=== PATIENT | female | born 1940 | race African-American/Black ===

== ENCOUNTER 2017-05-22 18:41 | Inpatient (IN) | payer OTHER, MEDICARE ==
[~2017-05-22] VITALS: Ht 165.1 cm; Wt 126.1 kg
[~2017-05-22 18:41] MED LIST: BRIM.2%O EACH EYE; DORZ1SOL2 EACH EYE; DULO1CAP PO; FURO1TAB93 PO; GABA300C3 PO; LATA.005%O EACH EYE; LISI40TA PO; METO100T PO; POTA-243 PO
[2017-05-22 18:44] VITALS: BP 218/92; PULSE 76; RESP 20; TEMP 99.3; O2SAT 92
[2017-05-22] MEDS ORDERED: LISI40TA PO (19:05)
[2017-05-22] MEDS ORDERED: LEVO25TA4 PO (19:05)
[2017-05-22] MEDS ORDERED: OMEP20TA93 PO (19:05)
[2017-05-22] MEDS ORDERED: POTA10CA PO (19:05)
[2017-05-22] MEDS ORDERED: HYDR25TA5 PO (19:05)
[2017-05-22] MEDS ORDERED: RANI300C PO (19:05)
[2017-05-22] MEDS ORDERED: ALLO100T PO (19:05)
[2017-05-22] MEDS ORDERED: CHOL5000 PO (19:05)
[2017-05-22] MEDS ORDERED: DONE5TAB7 PO (19:05)
[2017-05-22] MEDS ORDERED: METO100T PO (19:05)
[2017-05-22] MEDS ORDERED: FURO40TA PO (19:05)
[2017-05-22] MEDS ORDERED: ATOR80TA45 PO (19:05)
--- NOTE | 2017-05-22 19:12 | PD ---
HPI Chief Complaint: Respiratory Distress Time Seen by Provider: 18:49 Travel History International Travel<30 days: No Contact w/Intl Traveler<30days: No Traveled to known affect area: No History of Present Illness HPI 76-year-old female that presents to the ED for evaluation of shortness of breath. Per patient she's had this for about 2 days now. Per patient is worsening. Per patient nothing makes it better but ambulate and does make it worse. She has any chest pain. 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 She's been having some cough and chills. No history of COPD or CHF. Patient does have a history of hypertension as well as takes Lasix for lower leg edema. Denies any chest pain. Denies any recent travel. She has been in contact with a lot of people in charge that she is not sure if she got something from them. Allergies to sulfa and hydrocodone. No bowel movement issues. No abdominal discomfort at this time. No numbness, tingling, weakness. Per patient. Chills but no obvious fevers. Some swelling noted. Patient states also having cough and congestion. Cough is nonproductive. PFSH Past Medical History Cancer: Yes (LEFT BREAST) Cardiovascular Problems: Yes (HEART MURMUR) Diabetes: No Endocrine: No Genitourinary: No Hepatitis: No Hiatal Hernia: No Immune Disorder: No Musculoskeletal: Yes (ARTHRITIS, BACK PROBLEMS) Neurologic: No Psychiatric: Yes (CLAUSTRAPHOBIA) Reproductive: No Respiratory: Yes (OCCASIONAL BRONCHITIS) Thyroid Disease: No Past Surgical History Abdominal Surgery: No AICD: No Cardiac Surgery: No Ear Surgery: No Endocrine Surgery: No Eye Surgery: Yes (LEFT EYE CATARACT EXTR., R EYE GLAUCOMA SURGERY) Genitourinary Surgery: No Gynecologic Surgery: Yes (TUBAL LIGATION) Hysterectomy: Yes (murmur, HTN) Joint Replacement: Yes (BILATERAL KNEES) Oral Surgery: No Pacemaker: No Thoracic Surgery: No Social History Tobacco Use: No (quit in the 80s) Substance Use: No Allergies-Medications (Allergen,Severity, Reaction): Coded Allergies: Sulfa (Sulfonamide Antibiotics) (Unverified Allergy, Severe, SWELLING, ITCHING, 05/22/17) hydrocodone (Unverified Adverse Reaction, Severe, Nausea/Vomiting, ) Reported Meds & Prescriptions Reported Meds & Active Scripts Active Reported Potassium Chloride ER (Potassium Chloride) 10 Meq Cap 10 Meq PO BID Levothyroxine (Levothyroxine Sodium) 25 Mcg Tab 25 Mcg PO DAILY Allopurinol 100 Mg Tab 200 Mg PO DAILY Donepezil 5 Mg Tab 5 Mg PO HS Hydrochlorothiazide 25 Mg Tab 25 Mg PO DAILY Lisinopril 40 Mg Tab 40 Mg PO DAILY Furosemide 40 Mg Tab 40 Mg PO BID Metoprolol Tartrate 100 Mg Tab 100 Mg PO DAILY Atorvastatin (Atorvastatin Calcium) 80 Mg Tab 80 Mg PO HS Ranitidine (Ranitidine HCl) 300 Mg Cap 300 Mg PO HS Omeprazole 20 Mg Tab 20 Mg PO DAILY Vitamin D3 (Cholecalciferol) 5,000 Unit Cap 5,000 Units PO DAILY Review of Systems Except as stated in HPI: all other systems reviewed are Neg Physical Exam Narrative GENERAL: SKIN: Warm and dry. HEAD: Atraumatic. Normocephalic. EYES: Pupils equal and round. No scleral icterus. No injection or drainage. ENT: No nasal bleeding or discharge. Mucous membranes pink and moist. Tongue is midline. No uvula deviation. TMs are clear with an of infection or perforation. Sinuses are nontender. Nostril are patent bilaterally with clear mucus noted. No obvious lymphadenopathy. NECK: Trachea midline. No JVD. CARDIOVASCULAR: Regular rate and rhythm. RESPIRATORY: No accessory muscle use. Mild rales heard with expiration.. Breath sounds equal bilaterally. GASTROINTESTINAL: Abdomen soft, non-tender, nondistended. Hepatic and splenic margins not palpable. MUSCULOSKELETAL: Extremities without clubbing, cyanosis, or edema. No obvious deformities. Full range of motion of the upper and lower extremities bilaterally. 2+ pulses bilaterally. NEUROLOGICAL: Awake and alert. No obvious cranial nerve deficits. Motor grossly within normal limits. Five out of 5 muscle strength in the arms and legs. Normal speech. PSYCHIATRIC: Appropriate mood and affect; insight and judgment normal. Data Data Last Documented VS Vital Signs Date Time Temp Pulse Resp B/P (MAP) Pulse Ox O2 Delivery O2 Flow Rate FiO2 05/22/17 20:22 98.0 66 20 180/85 (116) 100 Nasal Cannula 05/22/17 20:07 2.00 Orders Orders Electrocardiogram (05/22/17 18:59) Complete Blood Count With Diff (05/22/17 18:59) Comprehensive Metabolic Panel (05/22/17 18:59) Ckmb (Isoenzyme) Profile (05/22/17 18:59) Troponin I (05/22/17 18:59) B-Type Natriuretic Peptide (05/22/17 18:59) Prothrombin Time / Inr (Pt) (05/22/17 18:59) Act Partial Throm Time (Ptt) (05/22/17 18:59) Lipase (05/22/17 18:59) Magnesium (Mg) (05/22/17 18:59) Potassium, Serum (K) (05/22/17 18:59) Influenzae A/B Antigen (05/22/17 18:59) Chest, Single Ap (05/22/17 18:59) Iv Access Insert/Monitor (05/22/17 18:59) Ecg Monitoring (05/22/17 18:59) Oximetry (05/22/17 18:59) Albuterol-Ipratropium Neb (Duoneb Neb) (05/22/17 19:45) Ondansetron Inj (Zofran Inj) (05/22/17 20:15) CKMB (05/22/17 19:55) CKMB% (05/22/17 19:55) Admit Order (Ed Use Only) (05/22/17 21:08) Labs Laboratory Tests Test 05/22/17 19:55 White Blood Count 5.1 TH/MM3 Red Blood Count 3.70 MIL/MM3 Hemoglobin 11.3 GM/DL Hematocrit 34.0 % Mean Corpuscular Volume 92.0 FL Mean Corpuscular Hemoglobin 30.5 PG Mean Corpuscular Hemoglobin Concent 33.2 % Red Cell Distribution Width 15.5 % Platelet Count 181 TH/MM3 Mean Platelet Volume 8.2 FL Neutrophils (%) (Auto) 79.0 % Lymphocytes (%) (Auto) 4.8 % Monocytes (%) (Auto) 15.4 % Eosinophils (%) (Auto) 0.3 % Basophils (%) (Auto) 0.5 % Neutrophils # (Auto) 4.0 TH/MM3 Lymphocytes # (Auto) 0.2 TH/MM3 Monocytes # (Auto) 0.8 TH/MM3 Eosinophils # (Auto) 0.0 TH/MM3 Basophils # (Auto) 0.0 TH/MM3 CBC Comment DIFF FINAL Differential Comment Prothrombin Time 11.2 SEC Prothromb Time International Ratio 1.1 RATIO Activated Partial Thromboplast Time 25.7 SEC Blood Urea Nitrogen 28 MG/DL Creatinine 1.36 MG/DL Random Glucose 108 MG/DL Total Protein 7.7 GM/DL Albumin 3.4 GM/DL Calcium Level 8.6 MG/DL Magnesium Level 2.0 MG/DL Alkaline Phosphatase 83 U/L Aspartate Amino Transf (AST/SGOT) 24 U/L Alanine Aminotransferase (ALT/SGPT) 18 U/L Total Bilirubin 0.3 MG/DL Sodium Level 140 MEQ/L Potassium Level 4.6 MEQ/L Chloride Level 105 MEQ/L Carbon Dioxide Level 27.1 MEQ/L Anion Gap 8 MEQ/L Estimat Glomerular Filtration Rate 46 ML/MIN Total Creatine Kinase 230 U/L Creatine Kinase MB 5.3 NG/ML Creatine Kinase MB % 2.3 % Troponin I 0.10 NG/ML B-Type Natriuretic Peptide 1226 PG/ML Lipase 215 U/L MDM Medical Decision Making Medical Screen Exam Complete: Yes Emergency Medical Condition: Yes Medical Record Reviewed: Yes Interpretation(s) CBC & BMP Diagram 05/22/17 19:55 Total Protein 7.7, Albumin 3.4, Calcium Level 8.6, Magnesium Level 2.0, Alkaline Phosphatase 83, Aspartate Amino Transf (AST/SGOT) 24, Alanine Aminotransferase (ALT/SGPT) 18, Total Bilirubin 0.3 troponin 0.10 BNP in the 1200s Last Impressions Chest X-Ray 05/22/17 1859 Signed Impressions: Service Date/Time: Monday, May 22, 2017 19:18 - CONCLUSION: 1. Probable dependent atelectasis. No effusion or pneumothorax. Roberto Alcala MD influenza positive Differential Diagnosis Pneumonia versus bronchitis versus COPD versus CHF versus ACS less likely versus influenza Narrative Course 76-year-old female that presents to the ED for evaluation of shortness of breath. Patient was properly examined and was found to have signs and symptoms of unclear etiology at this time. Labs and imaging ordered. Labs and imaging showed elevated BNP, positive flow as well as positive troponin. Because of patient's symptoms I do recommend admission. Patient somewhat hypoxic without oxygen. She feels better with oxygen the breathing treatment. Her lungs sound better. She is never had CHF in the past and she's never heard this before. This time I do recommend admission for further evaluation. Patient is in agreement with this. Case discussed with Dr. Lopez who agrees to admission to her service. Diagnosis Primary Impression: CHF (congestive heart failure) Qualified Codes: I50.9 - Heart failure, unspecified Additional Impressions: Influenza Elevated troponin Admitting Information Admitting Physician Requests: Observation Camacho Marie May 22, 2017 19:12
--- NOTE | 2017-05-22 19:36 | RADRPT ---
EXAM DATE/TIME: 05/22/2017 19:18 [facility] COMPARISON: No previous studies available for comparison. INDICATIONS : Short of breath. MEDICAL HISTORY : None. SURGICAL HISTORY : None. ENCOUNTER: Initial ACUITY: 1 day PAIN SCORE: 0/10 LOCATION: Bilateral chest FINDINGS: A single view of the chest demonstrates the lungs to be symmetrically aerated without evidence of mas s, infiltrate or effusion. Basilar density probably represents some dependent atelectasis and crowdin g of the bronchovascular structures The cardiomediastinal contours are unremarkable. Osseous struct ures are intact. CONCLUSION: 1. Probable dependent atelectasis. No effusion or pneumothorax. Roberto Alcala MD on May 22, 2017 at 19:33 Board Certified Radiologist. This report was verified electronically.
[2017-05-22] MEDS ORDERED: RESP: ALBUTEROL 2.5 MG/IPRATROPIUM 0.5 MG NEB (SCH) INH ONE (19:45)
[2017-05-22 20:07] VITALS: O2SAT 99
[2017-05-22] MEDS ORDERED: ONDANSETRON HCL 4 MG/2 ML VIAL IV PUSH ONE (20:15)
[2017-05-22 20:22] VITALS: BP 180/85; PULSE 66; RESP 20; TEMP 98; O2SAT 100
[2017-05-22 20:27] LABS: BASOPHIL % 0.5 % (0.0-2.0); EOSINOPHIL % 0.3 % (0.0-4.0); HEMO FLAGS DIFF FINAL; LYMPH % 4.8 % (9.0-44.0); LYMPHOCYTE # 0.2 TH/MM3 (1.0-4.8); MEAN CORPUSCULAR HEMOGLOBIN 30.5 PG (27.0-34.0); MEAN CORPUSCULAR HGB CONC 33.2 % (32.0-36.0); MONO % 15.4 % (0.0-8.0); PLATELET COUNT 181 TH/MM3 (150-450); RED CELL DISTRIBUTION WIDTH 15.5 % (11.6-17.2); WHITE BLOOD COUNT 5.1 TH/MM3 (4.0-11.0)
[2017-05-22 20:42] LABS: APTT (PATIENT) 25.7 SEC (24.3-30.1); INTERNATIONAL NORMALIZED RATIO 1.1 RATIO; PROTHROMBIN TIME - PATIENT 11.2 SEC (9.8-11.6)
[2017-05-22 20:48] LABS: ANION GAP 8 MEQ/L (5-15); AST (GOT) 24 U/L (15-37); BICARBONATE 27.1 MEQ/L (21.0-32.0); BLOOD UREA NITROGEN 28 MG/DL (7-18); CHLORIDE 105 MEQ/L (98-107); GLOMERULAR FILTRATION RATE 46 ML/MIN (>89); POTASSIUM 4.6 MEQ/L (3.5-5.1); SODIUM (NA) 140 MEQ/L (136-145)
[2017-05-22 20:50] LABS: ALT (GPT) 18 U/L (10-53)
[2017-05-22 20:53] LABS: ALKALINE PHOSPHATASE 83 U/L (45-117); CREATINE KINASE 230 U/L (26-192); TOTAL BILIRUBIN ADULT 0.3 MG/DL (0.2-1.0)
[2017-05-22 21:06] LABS: CKMB 5.3 NG/ML (0.5-3.6)
[2017-05-22] MEDS ORDERED: SODIUM CHLORIDE 0.9% FLUSH 10 ML FLUSH IV FLUSH PRN (21:30)
--- NOTE | 2017-05-22 21:47 | HHI.HP ---
[facility] Unknown Admission Diagnosis acute CHF exacerbation, influenza Diagnoses: Travel History International Travel<30 Days: No Contact w/Intl Traveler <30 Da: No Traveled to Known Affected Are: No History of Present Illness 76-year-old female with a past medical history significant for hypertension, hyperlipidemia, hypothyroidism and history of breast cancer now in remission presents to the emergency department with a 2 day history of cough productive of clear sputum with increasing shortness of breath. Reports that she began wheezing yesterday. She states she's had nausea and vomiting and also began yesterday. She has no history of coronary artery disease or CHF. She does have a history of bilateral lower extremity edema that has been worsening over the past year. She is influenza A positive. Chest x-ray without consolidation although does appear minimally wet. BNP 1226. Review of Systems Denies fever or chills Denies blurry vision, otorrhea, rhinorrhea Denies sore throat and cough No chest pain, palpitations, Positive shortness of breath No abdominal pain Denies constipation/diarrhea. Positive nausea/vomiting Denies muscle pain/weakness No rashes Past Family Social History Past Medical History Hypertension Hyperlipidemia Hypothyroidism Left-sided breast cancer Past Surgical History Left mastectomy Bilateral knee replacement Left heel spur Bilateral tubal ligation Reported Medications Reported Meds & Active Scripts Active Reported Potassium Chloride ER (Potassium Chloride) 10 Meq Cap 10 Meq PO BID Levothyroxine (Levothyroxine Sodium) 25 Mcg Tab 25 Mcg PO DAILY Allopurinol 100 Mg Tab 200 Mg PO DAILY Donepezil 5 Mg Tab 5 Mg PO HS Hydrochlorothiazide 25 Mg Tab 25 Mg PO DAILY Lisinopril 40 Mg Tab 40 Mg PO DAILY Furosemide 40 Mg Tab 40 Mg PO BID Metoprolol Tartrate 100 Mg Tab 100 Mg PO DAILY Atorvastatin (Atorvastatin Calcium) 80 Mg Tab 80 Mg PO HS Ranitidine (Ranitidine HCl) 300 Mg Cap 300 Mg PO HS Omeprazole 20 Mg Tab 20 Mg PO DAILY Vitamin D3 (Cholecalciferol) 5,000 Unit Cap 5,000 Units PO DAILY Allergies: Coded Allergies: Sulfa (Sulfonamide Antibiotics) (Unverified Allergy, Severe, SWELLING, ITCHING, 05/22/17) hydrocodone (Unverified Adverse Reaction, Severe, Nausea/Vomiting, ) Family History Mother with diabetes mellitus. Father with CAD. Social History Quit smoking in 1979. Extremely rare alcohol use. Denies illicit drugs. Physical Exam Vital Signs Vital Signs Date Time Temp Pulse Resp B/P (MAP) Pulse Ox O2 Delivery O2 Flow Rate FiO2 05/22/17 20:22 98.0 66 20 180/85 (116) 100 Nasal Cannula 05/22/17 20:07 99 Nasal Cannula 2.00 05/22/17 18:44 99.3 76 20 218/92 (134) 92 Physical Exam GENERAL: female sitting up in bed SKIN: No rashes, ecchymoses or lesions. Cool and dry. HEAD: Atraumatic. Normocephalic. No temporal or scalp tenderness. EYES: Pupils equal round and reactive. Extraocular motions intact. No scleral icterus. No injection or drainage. ENT: Nose without bleeding, purulent drainage or septal hematoma. Throat without erythema, tonsillar hypertrophy or exudate. Uvula midline. Airway patent. NECK: Trachea midline. No JVD or lymphadenopathy. Supple, nontender, no meningeal signs. CARDIOVASCULAR: Regular rate and rhythm without murmurs, gallops, or rubs. RESPIRATORY: Bilateral wheezes left greater than right. GASTROINTESTINAL: Abdomen soft, non-tender, nondistended. No hepato-splenomegaly , or palpable masses. No guarding. MUSCULOSKELETAL: 2+ pitting edema to the knees bilaterally. No calf tenderness. NEUROLOGICAL: Awake and alert. Cranial nerves II through XII intact. Motor and sensory grossly within normal limits. Normal speech. Laboratory Laboratory Tests Test 05/22/17 19:55 White Blood Count 5.1 Red Blood Count 3.70 Hemoglobin 11.3 Hematocrit 34.0 Mean Corpuscular Volume 92.0 Mean Corpuscular Hemoglobin 30.5 Mean Corpuscular Hemoglobin Concent 33.2 Red Cell Distribution Width 15.5 Platelet Count 181 Mean Platelet Volume 8.2 Neutrophils (%) (Auto) 79.0 Lymphocytes (%) (Auto) 4.8 Monocytes (%) (Auto) 15.4 Eosinophils (%) (Auto) 0.3 Basophils (%) (Auto) 0.5 Neutrophils # (Auto) 4.0 Lymphocytes # (Auto) 0.2 Monocytes # (Auto) 0.8 Eosinophils # (Auto) 0.0 Basophils # (Auto) 0.0 CBC Comment DIFF FINAL Differential Comment Prothrombin Time 11.2 Prothromb Time International Ratio 1.1 Activated Partial Thromboplast Time 25.7 Blood Urea Nitrogen 28 Creatinine 1.36 Random Glucose 108 Total Protein 7.7 Albumin 3.4 Calcium Level 8.6 Magnesium Level 2.0 Alkaline Phosphatase 83 Aspartate Amino Transf (AST/SGOT) 24 Alanine Aminotransferase (ALT/SGPT) 18 Total Bilirubin 0.3 Sodium Level 140 Potassium Level 4.6 Chloride Level 105 Carbon Dioxide Level 27.1 Anion Gap 8 Estimat Glomerular Filtration Rate 46 Total Creatine Kinase 230 Creatine Kinase MB 5.3 Creatine Kinase MB % 2.3 Troponin I 0.10 B-Type Natriuretic Peptide 1226 Lipase 215 Date/Time Source Procedure Growth Status 05/22/17 19:20 Nasal Washing Influenza Types A,B Antigen ([facility]) - Final Positive For Flu A Antigen Complete Result Diagram: 05/22/17195405/22/171954 Caprini VTE Risk Assessment Caprini VTE Risk Assessment: Mod/High Risk (score >= 2) Caprini Risk Assessment Model Point Value = 1 Point Value = 2 Point Value = 3 Point Value = 5 Age 41-60 Minor surgery BMI > 25 kg/m2 Swollen legs Varicose veins or History of unexplained or recurrent spontaneous Oral contraceptives or hormone replacement Sepsis (< 1 month) Serious lung disease, including pneumonia (< 1 month) Abnormal pulmonary function Acute myocardial infarction Congestive heart failure (< 1 month) History of inflammatory bowel disease Medical patient at bed rest Age 61-74 Arthroscopic surgery Major open surgery (> 45 min) Laparoscopic surgery (> 45 min) Malignancy Confined to bed (> 72 hours) Immobilizing plaster cast Central venous access Age >= 75 History of VTE Family history of VTE Factor V Leiden Prothrombin [id number] Lupus anticoagulant Anticardiolipin antibodies Elevated serum homocysteine Heparin-induced thrombocytopenia Other congenital or acquired thrombophilia Stroke (< 1 month) Elective arthroplasty Hip, pelvis, or leg fracture Acute spinal cord injury (< 1 month) Prophylaxis Regimen Total Risk Factor Score Risk Level Prophylaxis Regimen 0-1 Low Early ambulation 2 Moderate Order ONE of the following: *Sequential Compression Device (SCD) *Heparin 5000 units SQ BID 3-4 Higher Order ONE of the following medications: *Heparin 5000 units SQ TID *Enoxaparin/Lovenox 40 mg SQ daily (WT < 150 kg, CrCl > 30 mL/min) *Enoxaparin/Lovenox 30 mg SQ daily (WT < 150 kg, CrCl > 10-29 mL/min) *Enoxaparin/Lovenox 30 mg SQ BID (WT < 150 kg, CrCl > 30 mL/min) AND/OR *Sequential Compression Device (SCD) 5 or more Highest Order ONE of the following medications: *Heparin 5000 units SQ TID (Preferred with Epidurals) *Enoxaparin/Lovenox 40 mg SQ daily (WT < 150 kg, CrCl > 30 mL/min) *Enoxaparin/Lovenox 30 mg SQ daily (WT < 150 kg, CrCl > 10-29 mL/min) *Enoxaparin/Lovenox 30 mg SQ BID (WT < 150 kg, CrCl > 30 mL/min) AND *Sequential Compression Device (SCD) Assessment and Plan Assessment and Plan Assessment/plan: 1. New onset CHF/shortness of breath Chest x-ray mild pulmonary edema, images reviewed by ms BNP 1226 IV Lasix Supplemental oxygen when necessary Echo pending Troponin elevated to 0.10, ACS rule out pending with serial troponins/EKGs Cardiology consulted, appreciate recommendations 2. Influenza Supportive care Tamiflu as patient has been symptomatic for less than 2 days 3. CKD Creatinine 1.36, baseline Monitor renal function 4. Hypertension/hyperlipidemia/hypothyroidism Continue home medications FEN Heart healthy diet Monitor electrolytes Heparin Case discussed with ER physician at length Bev Lopez MD May 22, 2017 21:47
[2017-05-22] MEDS: ATORVASTATIN 80 MG TAB PO SCH (22:07)
[2017-05-22] MEDS: FAMOTIDINE 20 MG TAB PO SCH (22:07)
[2017-05-22] MEDS: DONEPEZIL HCL 5 MG TAB PO SCH (22:07)
[2017-05-22] MEDS: HEPARIN SODIUM - SQ 10,000 UNITS/ML VIAL SQ SCH (22:08)
[2017-05-22 22:10] VITALS: BP 181/77; PULSE 69; RESP 20; O2SAT 98
[2017-05-22] MEDS ORDERED: hydrALAZINE HCL 20 MG/ML VIAL IV PUSH ONE (22:15)
[2017-05-22 22:42] VITALS: BP 166/72; PULSE 75; RESP 20; O2SAT 100
[2017-05-22 23:54] VITALS: BP 151/67; PULSE 95; RESP 20; TEMP 99.7; O2SAT 97
[2017-05-23] VITALS (11 sets, daily range): BP systolic 123–165; BP diastolic 56–76; PULSE 59–94; RESP 18–20; TEMP 98.3–99.5; O2SAT 92–98
[2017-05-23] MEDS ORDERED: FUROSEMIDE 40 MG/4 ML VIAL IV PUSH ONE (00:30)
[2017-05-23] MEDS: RESP: ALBUTEROL 2.5 MG/IPRATROPIUM 0.5 MG NEB (PRN) NEB (00:40)
[2017-05-23 02:36] LABS: AUTOMATED NEUTROPHIL # 6.9 TH/MM3 (1.8-7.7); BASOPHIL % 0.2 % (0.0-2.0); EOSINOPHIL % 0.1 % (0.0-4.0); HEMATOCRIT 36.3 % (35.0-46.0); HEMO FLAGS DIFF FINAL; LYMPH % 3.8 % (9.0-44.0); LYMPHOCYTE # 0.3 TH/MM3 (1.0-4.8); MEAN CELL VOLUME 93.6 FL (80.0-100.0); MEAN CORPUSCULAR HEMOGLOBIN 29.9 PG (27.0-34.0); NEUT % 86.9 % (16.0-70.0); PLATELET COUNT 173 TH/MM3 (150-450); RED BLOOD COUNT 3.88 MIL/MM3 (4.00-5.30); RED CELL DISTRIBUTION WIDTH 15.2 % (11.6-17.2)
[2017-05-23 02:59] LABS: BICARBONATE 26.5 MEQ/L (21.0-32.0); POTASSIUM 4.3 MEQ/L (3.5-5.1)
[2017-05-23] MEDS: RESP: ALBUTEROL 2.5 MG/IPRATROPIUM 0.5 MG NEB (SCH) NEB ×4 (03:04→22:12)
[2017-05-23 03:15] LABS: CKMB 5.4 NG/ML (0.5-3.6)
[2017-05-23] MEDS: LEVOTHYROXINE SODIUM 25 MCG TAB PO SCH (05:34)
[2017-05-23] MEDS: HEPARIN SODIUM - SQ 10,000 UNITS/ML VIAL SQ SCH ×2 (05:35→14:42)
--- NOTE | 2017-05-23 08:23 | PD.CONS ---
HPI Consult Requested By Primary Care Physician Unknown History of Present Illness 76-year-old female with a past medical history significant for hypertension, hyperlipidemia, hypothyroidism, heart murmur, lower extremities swelling and breast cancer s/p radiation, chemo and masectomy on remission presents to the emergency department with a 2 day history of cough productive of clear sputum with increasing shortness of breath. Reports that she began wheezing yesterday also nausea and vomiting. She has no history of coronary artery disease. BNP 1226. Cardiology consulted for HF evaluation. She denies chest pain, palpitations or syncope. Review of Systems Consitutional: DENIES: Fatigue, Fever, Chills, Weight gain, Weight loss Eyes: DENIES: Amaurosis Fugax, Change in vision HEENT: DENIES: Lightheadedness, Change in hearing Respiratory: COMPLAINS OF: Cough, Shortness of breath, DENIES: See HPI, Snoring , Wheezing, Sputum production Cardiovascular: DENIES: See HPI, Chest pain, Palpitations, Syncope, Tachycardia Gastrointestinal: COMPLAINS OF: Nausea, DENIES: Vomiting, Change in bowel habits, Reflux, Bloody stools, Melena Integumentary: DENIES: Rash Neurologic: DENIES: Tingling or numbness, Memory problems, Poor Balance, Stroke symptoms Musculoskeletal: DENIES: Joint pain, Muscle pain, Limited range of motion, Back pain Psychiatric: DENIES: Anxiety, Depression, Sleep disturbances Hematologic: DENIES: Bruising tendencies, Bleeding tendencies Endocrine: DENIES: Weight gain, Weight loss, Thyroid disease Past Family Social History Allergies: Coded Allergies: Sulfa (Sulfonamide Antibiotics) (Unverified Allergy, Severe, SWELLING, ITCHING, 05/22/17) hydrocodone (Unverified Adverse Reaction, Severe, Nausea/Vomiting, ) Past Medical History Hypertension Hyperlipidemia Hypothyroidism Left-sided breast cancer Past Surgical History Left mastectomy Bilateral knee replacement Left heel spur Bilateral tubal ligation Reported Medications Reported Meds & Active Scripts Active Reported Potassium Chloride ER (Potassium Chloride) 10 Meq Cap 10 Meq PO BID Levothyroxine (Levothyroxine Sodium) 25 Mcg Tab 25 Mcg PO DAILY Allopurinol 100 Mg Tab 200 Mg PO DAILY Donepezil 5 Mg Tab 5 Mg PO HS Hydrochlorothiazide 25 Mg Tab 25 Mg PO DAILY Lisinopril 40 Mg Tab 40 Mg PO DAILY Furosemide 40 Mg Tab 40 Mg PO BID Metoprolol Tartrate 100 Mg Tab 100 Mg PO DAILY Atorvastatin (Atorvastatin Calcium) 80 Mg Tab 80 Mg PO HS Ranitidine (Ranitidine HCl) 300 Mg Cap 300 Mg PO HS Omeprazole 20 Mg Tab 20 Mg PO DAILY Vitamin D3 (Cholecalciferol) 5,000 Unit Cap 5,000 Units PO DAILY Active Ordered Medications Current Medications Medications (Trade) Dose Ordered Sig/Elana Route Start Time Stop Time Status Last Admin (NS Flush) 2 ml BID IV FLUSH 05/23/17 09:00 (NS Flush) 2 ml UNSCH PRN IV FLUSH 05/22/17 21:30 05/23/17 00:41 (Lasix Inj) 40 mg BID@,18 IVP 05/23/17 09:00 (KCl) 10 meq BID PO 05/23/17 09:00 (Aspirin Chew) 81 mg DAILY CHEW 05/23/17 09:00 (Heparin Inj) 5,000 units Q8H SQ 05/22/17 22:00 05/23/17 05:35 (Lipitor) 80 mg HS PO 05/22/17 21:45 05/22/17 22:07 (Aricept) 5 mg HS PO 05/22/17 21:45 05/22/17 22:07 (Synthroid) 25 mcg DAILY@0600 PO 05/23/17 06:00 05/23/17 05:34 (Lopressor) 100 mg DAILY PO 05/23/17 09:00 (Prinivil) 40 mg DAILY PO 05/23/17 09:00 (Protonix) 20 mg DAILY PO 05/23/17 09:00 (Pepcid) 20 mg HS PO 05/22/17 21:45 05/22/17 22:07 (Tamiflu) 75 mg DAILY PO 05/23/17 09:00 (Duoneb Neb) 1 ampule Q4HR NEB PRN NEB 05/23/17 00:30 05/23/17 00:40 (Duoneb Neb) 1 ampule Q6HR NEB NEB 05/23/17 04:00 05/23/17 03:04 (Pneumovax-23 Inj) 25 mcg ONCE ONCE IM 05/24/17 10:00 05/24/17 10:01 (Flu (Quadrivalent) Vaccine Inj) 0.5 ml ONCE ONCE IM 05/24/17 10:00 05/24/17 10:01 Family History Mother with diabetes mellitus. Father with CAD. Social History Quit smoking in 1979. Extremely rare alcohol use. Denies illicit drugs. Physical Exam Vital Signs Vital Signs Date Time Temp Pulse Resp B/P (MAP) Pulse Ox O2 Delivery O2 Flow Rate FiO2 05/23/17 07:48 99.5 87 20 123/56 (78) 97 05/23/17 03:04 94 Nasal Cannula 2.00 05/23/17 02:43 98.5 76 18 151/67 (95) 95 05/23/17 00:30 76 05/22/17 23:36 05/22/17 22:42 75 20 166/72 (103) 100 Nasal Cannula 2.00 05/22/17 22:10 69 20 181/77 (111) 98 Nasal Cannula 2.00 05/22/17 20:22 98.0 66 20 180/85 (116) 100 Nasal Cannula 05/22/17 20:07 99 Nasal Cannula 2.00 05/22/17 18:44 99.3 76 20 218/92 (134) 92 Physical Exam GENERAL: Well-nourished, well-developed patient. SKIN: Warm and dry. HEAD: Normocephalic. EYES: No scleral icterus. No injection or drainage. NECK: Supple, trachea midline. No JVD or lymphadenopathy. CARDIOVASCULAR: Regular rate and rhythm 2/6 JOHANNA, gallops, or rubs. RESPIRATORY: Breath sounds equal bilaterally. No accessory muscle use. GASTROINTESTINAL: Abdomen soft, non-tender, nondistended. EXTREMITIES: No cyanosis, or +edema. NEUROLOGICAL: Awake, alert, and oriented x 3. Non-focal. Laboratory Laboratory Tests Test 05/22/17 19:55 05/23/17 02:22 White Blood Count 5.1 8.0 Red Blood Count 3.70 3.88 Hemoglobin 11.3 11.6 Hematocrit 34.0 36.3 Mean Corpuscular Volume 92.0 93.6 Mean Corpuscular Hemoglobin 30.5 29.9 Mean Corpuscular Hemoglobin Concent 33.2 32.0 Red Cell Distribution Width 15.5 15.2 Platelet Count 181 173 Mean Platelet Volume 8.2 7.9 Neutrophils (%) (Auto) 79.0 86.9 Lymphocytes (%) (Auto) 4.8 3.8 Monocytes (%) (Auto) 15.4 9.0 Eosinophils (%) (Auto) 0.3 0.1 Basophils (%) (Auto) 0.5 0.2 Neutrophils # (Auto) 4.0 6.9 Lymphocytes # (Auto) 0.2 0.3 Monocytes # (Auto) 0.8 0.7 Eosinophils # (Auto) 0.0 0.0 Basophils # (Auto) 0.0 0.0 CBC Comment DIFF FINAL DIFF FINAL Differential Comment Prothrombin Time 11.2 Prothromb Time International Ratio 1.1 Activated Partial Thromboplast Time 25.7 Blood Urea Nitrogen 28 25 Creatinine 1.36 1.31 Random Glucose 108 104 Total Protein 7.7 Albumin 3.4 Calcium Level 8.6 9.0 Magnesium Level 2.0 Alkaline Phosphatase 83 Aspartate Amino Transf (AST/SGOT) 24 Alanine Aminotransferase (ALT/SGPT) 18 Total Bilirubin 0.3 Sodium Level 140 141 Potassium Level 4.6 4.3 Chloride Level 105 107 Carbon Dioxide Level 27.1 26.5 Anion Gap 8 8 Estimat Glomerular Filtration Rate 46 48 Total Creatine Kinase 230 272 Creatine Kinase MB 5.3 5.4 Creatine Kinase MB % 2.3 2.0 Troponin I 0.10 0.16 B-Type Natriuretic Peptide 1226 Lipase 215 Date/Time Source Procedure Growth Status 05/22/17 19:20 Nasal Washing Influenza Types A,B Antigen ([facility]) - Final Positive For Flu A Antigen Complete Result Diagram: 05/23/1722105/23/17221 Imaging Last Impressions Chest X-Ray 05/22/17 1859 Signed Impressions: Service Date/Time: Monday, May 22, 2017 19:18 - CONCLUSION: 1. Probable dependent atelectasis. No effusion or pneumothorax. Roberto Alcala MD Assessment and Plan Problem List: (1) CHF (congestive heart failure) ICD Codes: I50.9 - Heart failure, unspecified Status: Acute Plan: 76 y/o F admitted with SOB concerning for new onset HF. Murmur on exam suggestive of severe . Currently she reports feeling well no CV complaints. Recommendations: 1. 2Decho TODAY. If severe will schedule cath for pre-op 2. Strict I&O 3. Daily weights 4. Low salt diet 5. IV diuresis 6. Check TSH 7. Cont BB, ACEi, Statin and ASA Further management to be determine (2) Influenza ICD Codes: J11.1 - Influenza due to unidentified influenza virus with other respiratory manifestations Status: Acute (3) Elevated troponin ICD Codes: R74.8 - Abnormal levels of other serum enzymes Status: Acute Problem Qualifiers (1) CHF (congestive heart failure): Qualified Codes: I50.9 - Heart failure, unspecified Luis Ansari MD May 23, 2017 08:23
[2017-05-23] MEDS ORDERED: ASPIRIN 81 MG CHEW TAB CHEW SCH (09:00)
[2017-05-23] MEDS: OSELTAMIVIR PHOSPHATE 75 MG CAP PO SCH (10:34)
[2017-05-23] MEDS: PANTOPRAZOLE SOD 20 MG DELAYED RELEASE TAB PO SCH (10:35)
[2017-05-23] MEDS: POTASSIUM CHLORIDE 10 MEQ CONTROLLED RELEASE TAB PO SCH ×2 (10:35→21:20)
[2017-05-23] MEDS: LISINOPRIL 20 MG TAB PO SCH (10:35)
[2017-05-23] MEDS: METOPROLOL TARTRATE 100 MG TAB PO SCH (10:35)
[2017-05-23] MEDS: SODIUM CHLORIDE 0.9% FLUSH 10 ML FLUSH IV FLUSH SCH ×2 (10:36→21:20)
[2017-05-23] MEDS: FUROSEMIDE 40 MG/4 ML VIAL IVP SCH ×2 (10:36→18:00)
[2017-05-23 10:56] LABS: CKMB 3.1 NG/ML (0.5-3.6)
--- NOTE | 2017-05-23 13:11 | ECHRPT ---
Indication: SHORTNESS OF BREATH CONCLUSIONS Mildly dilated left ventricle. Wall thickness is normal. The left ventricular systolic function is normal with an estimated ejection fraction in the range of 55-60%. The left atrial size is mildly dilated. Mitral annular calcification is present. Trace mitral valve regurgitation. [id number] aortic valve regurgitation. Severe aortic valve stenosis. Aortic valve area is 0.58 cm. Aortic valve mean gradient is 67 mmHg. There is trace tricuspid valve regurgitation. BP: / HR: Rhythm: MEASUREMENTS (Male / Female) Normal Values Technical Quality: 2D ECHO LV Diastolic Diameter PLAX 5.0 cm 4.2 - 5.9 / 3.9 - 5.3 cm LV Systolic Diameter PLAX 3.7 cm IVS Diastolic Thickness 1.0 cm 0.6 - 1.0 / 0.6 - 0.9 cm LVPW Diastolic Thickness 0.8 cm 0.6 - 1.0 / 0.6 - 0.9 cm LV Relative Wall Thickness 0.4 RV Internal Dim ED PLAX 2.2 cm LVOT Diameter 1.9 cm LA Systolic Diameter LX 3.8 cm 3.0 - 4.0 / 2.7 - 3.8 cm DOPPLER AV Peak Velocity 583.0 cm/s AV Peak Gradient 136.0 mmHg AV Mean Gradient 84.0 mmHg AV Velocity Time Integral 145.0 cm AI Peak Velocity 397.5 cm/s AI Peak Gradient 63.2 mmHg AI Pressure Half Time 408.0 ms LVOT Peak Velocity 118.0 cm/s LVOT Peak Gradient 5.6 mmHg LVOT Velocity Time Integral 29.4 cm AV Area Cont Eq vti 0.6 cm AV Area Cont Eq pk 0.6 cm Mitral E Point Velocity 76.0 cm/s Mitral A Point Velocity 86.9 cm/s Mitral E to A Ratio 0.9 TR Peak Velocity 374.0 cm/s TR Peak Gradient 56.0 mmHg Right Atrial Pressure 5.0 mmHg Pulmonary Artery Systolic Pressu 61.0 mmHg Right Ventricular Systolic Press 61.0 mmHg FINDINGS LEFT VENTRICLE Mildly dilated left ventricle. Wall thickness is normal. The left ventricular systolic function is normal with an estimated ejection fraction in the range of 55-60%. RIGHT VENTRICLE Normal right ventricular size and systolic function. LEFT ATRIUM The left atrial size is mildly dilated. RIGHT ATRIUM The right atrial size is normal. ATRIAL SEPTUM Normal atrial septal thickness without atrial level shunting by limited color doppler interrogation. AORTA The aortic root and proximal ascending aorta are normal in size on limited imaging. MITRAL VALVE Mitral annular calcification is present. Trace mitral valve regurgitation. AORTIC VALVE [id number] aortic valve regurgitation. Severe aortic valve stenosis. Aortic valve area is 0.58 cm. Aortic valve mean gradient is 84 mmHg. TRICUSPID VALVE There is trace tricuspid valve regurgitation. PULMONARY VALVE No pulmonary valve regurgitation or stenosis. VESSELS The inferior vena cava is normal in size. PERICARDIUM No pericardial effusion. Luis Ansari MD (Electronically Signed) Final Date:23 May 2017 13:10
--- NOTE | 2017-05-23 13:40 | EKG ---
Date Performed: 05/22/2017 Time Performed: 19:16:16 PTAGE: 76 years EKG: Sinus rhythm WITH OCCASIONAL VENTRICULAR PREMATURE COMPLEXES POSSIBLE LEFT VENTRICULAR HYPERTROPHY POSSIBLE SEPTA L MYOCARDIAL INFARCTION ABNORMAL ECG NO PREVIOUS TRACING DOCTOR: Felipa Arevalo Interpretating Date/Time 05/23/2017 13:40:14
--- NOTE | 2017-05-23 14:59 | HHI.PR ---
Subjective Remarks patient laying in bed she is about to leave the room going for catheter lab for heart catheterization by Dr. Alcala She denied active chest pain at this point or short of breath, she is afebrile Objective Vitals Vital Signs Date Time Temp Pulse Resp B/P (MAP) Pulse Ox O2 Delivery O2 Flow Rate FiO2 05/23/17 12:10 82 05/23/17 12:04 98.6 70 20 144/63 (90) 92 05/23/17 11:56 92 21 05/23/17 08:19 94 05/23/17 07:48 99.5 87 20 123/56 (78) 97 05/23/17 03:04 94 Nasal Cannula 2.00 05/23/17 02:43 98.5 76 18 151/67 (95) 95 05/23/17 00:30 76 05/22/17 23:36 05/22/17 22:42 75 20 166/72 (103) 100 Nasal Cannula 2.00 05/22/17 22:10 69 20 181/77 (111) 98 Nasal Cannula 2.00 05/22/17 20:22 98.0 66 20 180/85 (116) 100 Nasal Cannula 05/22/17 20:07 99 Nasal Cannula 2.00 05/22/17 18:44 99.3 76 20 218/92 (134) 92 Result Diagram: 05/23/1722105/23/17221 Objective Remarks GENERAL: This is a well-nourished, well-developed patient, in no apparent distress. SKIN: No rashes, warm and dry HEAD: Atraumatic. Normocephalic. EYES: Pupils equal round and reactive. Extraocular motions intact. No scleral icterus. ENT: Nose without bleeding, or drainage, Airway patent. NECK: Trachea midline. Supple CARDIOVASCULAR: Regular rate with 4 to 5/6 systolic murmur mostly on the aortic area significant for possible aortic stenosis RESPIRATORY: Fair air entry bilaterally. No wheezes, rales, or rhonchi. GASTROINTESTINAL: Abdomen soft, non-tender, nondistended. Positive bowel sounds MUSCULOSKELETAL: Extremities without clubbing, cyanosis, or edema. Pedal pulses appreciated NEUROLOGICAL: Awake and alert. Moves all extremity. Normal speech.no focal neurological deficit A/P Assessment and Plan Severe aortic stenosis valve surface 0.53 with gradient 0.67 along with Trace MR and trace TR, moderate AR showing on 2-D echo, EF 55-60% Dyspnea on exertion, suspect CHF Positive influenza A Chronic kidney disease Hypertension Hyperlipidemia Hypothyroidism DVT prophylaxis Plan: Patient admitted to telemetry Started on iv Lasix with strict I&O Oxygen Tamiflu Cardiology consultation appreciated, 2-D echo reviewed personally showing, Severe aortic stenosis valve surface 0.53 with gradient 0.67 along with Trace MR and trace TR, moderate AR showing on 2-D echo, EF 55-60% Cardiology decided on taking patient for heart catheter Monitor BMP and electrolytes and avoid nephrotoxin Continue Synthroid Continue aspirin statin SCD heparin for DVT prophylaxis Luca Dietz MD May 23, 2017 14:59
[2017-05-23] MEDS ORDERED: HEPARIN SODIUM - IV 10,000 UNITS/10 ML VIAL ONE (15:02)
[2017-05-23] MEDS ORDERED: VERAPAMIL HCL 5 MG/2 ML VIAL ONE (15:02)
[2017-05-23] MEDS ORDERED: NITROGLYCERIN INJ 5 ML ONE (15:02)
[2017-05-23] MEDS ORDERED: HEPARIN-NS/PF INJ 1,000 ML ONE (15:02)
[2017-05-23] MEDS ORDERED: MIDAZOLAM HCL 2 MG/2 ML VIAL ONE (15:27)
[2017-05-23] MEDS ORDERED: CLOPIDOGREL 300 MG TAB ONE (16:16)
[2017-05-23] MEDS ORDERED: CLOPIDOGREL 300 MG TAB PO ONE (16:30)
[2017-05-23] MEDS ORDERED: MISC INFORMATION XX ONE (16:30)
--- NOTE | 2017-05-23 16:55 | CATHPROC ---
[employer] HIS Report Study Information Study Number Admission Scheduled Start Study Start [id number] May 22 2017 9:25PM 05/23/2017 May 23 2017 2:32PM Temple Service Cardiac Catheterization Admit Source Facility Department Emergency department [facility] Wire Chief Physician and Clinical Staff Initial MD Ansari, Luis Digital Account Directormichael Cano RN, Marilu Guan RN Recorder Criss Estrada,SQL DATABASE ADMINISTRATOR TECH2 Scrub Mickie Murray,RT(R) (BS) Procedures Performed Procedure Location (Site) Vessel Name Coronary Angiograms RCA Right Coronary Drug Eluting Inflatio RCA Mid Right Coronary Wire insertion Radial (right) Radial Art. Equipment Time Timber Estimator Description Size Mfg Part Number Used/Scraped TRANSDUCER, TRSIGKATAVE [id number] 15:11 Eons * Used W/STOCKCOCK *[id number] *[id number] *[id number] *[id number] 15:11 drchrono PACK, CCL CUSTOM * Used *[id number] 15:11 drchrono SUPPORT, ARTERIAL ADULT 62900 *[id number] Used [id number] 15:57 MEDTRONIC JL 3.5 DXTERITY CATHETER FR 5 Used *[id number] 16:10 MEDTRONIC STENT, 2.5 38MM DEVORA 2.5 38MM [id number] Used [id number] 16:10 BOOK A TIGER MEDICAL 30 DOROTHY INDEFLATOR Used *[id number] BAND, RADIAL COMPRESSION TR [id number] 16:15 BOOK [employer] TIG[employer]ICAL 24CM Used SHORT 24 *[id number] 15:11 BOOK [employer] TIG[employer]ICAL WIRE, 3MMJ .035 180CM 180CM Used *[id number] 15:11 NAMIC MANIFOLD, 4 PORT * Used *[id number] 15:11 NYCOMED OMNIPAQUE, 350 MG, 150ML 150ML [id number] Used [id number] 15:11 MELENDEZ MEDICAL BLANKET,WARM AIR CCL * Used *[id number] SHEATH, FR6 TRANSRADIAL RM*[id number] 15:11 TERUMO MEDICAL FR 6 Used SLENDER 10CM *[id number] WIRE, RUNTHROUGH NS FLOPPY [id number] 16:04 TERUMO MEDICAL 180CM Used .014 180CM *[id number] Equipment Model, Serial, Lot Number and Expiration Data Description Model Number Serial Number Lot Number Expiration Date STENT, 2.5 38MM DEVORA [id number] 01-23-2019 History: Allergies Allergy Reaction hydrocodone Nausea/Vomiting Sulfa SWELLING, ITCHING Sulfa (Sulfonamide Antibiotics) SWELLING, ITCHING History: Risk Factors Family History of Hypertension Dyslipidemia Previous [place] Previous Heart Failure Premature CAD Yes Yes No No No Prior Valve Prior PCI Prior CABG Surgery No No No Cerebrovascular Peripheral Artery Chronic Lung On Dialysis Diabetes Disease Disease Disease No No No No No History: Stress Tests Stress or Imaging Studies Performed No History: Other Disease Selection Items HTN History: Other Current Smoker Method Quit Packs a Day Years Used Pack Years No Cigarettes 37 Years Ago 1 25 25 Labs Hgb (g/dl) Hct (%) WBC (l/cumm) Platelets (thousands) 11.60-17.00 35.00-51.00 4.00-11.00 150.00-450.00 11.6 36.3 8 173 Glucose (mg/dl) BUN (mg/dl) Creatinine (mg/dl) BUN:Creatinine (1:x) 74.00-106.00 7.00-18.00 0.50-1.30 10.00-20.00 104 25 1.3 19.2 Na (meq/l) K (meq/l) 136.00-145.00 3.50-5.10 141 4.5 PT (sec) INR (PTT:PT) 9.80-11.60 0.90-1.10 23 1.1 Medication Medication Total Dose (Bolus/Oral) Medication Total Dosage/Unit 1% XYLOCAINE 5 mL FENTANYL 100 mcg HEPARIN 9000 units OXYGEN 2 l/min PLAVIX 600 mg RADIAL COCKTAIL 5 mL (Bolus) VERSED 2 mg Medications (Bolus/Oral) Medication Time Given Dosage/Unit Administered By Reason 1% XYLOCAINE 05/23/2017 3:53:14 PM 5 mL Luis Ansari 5 mL 1% XYLOCAINE given in lab by Luis Ansari in Right Radial via Subcutaneous. Ordered by Luis Cantrell. FENTANYL 05/23/2017 3:53:15 PM 50 mcg José Manuel Cano RN 50 mcg FENTANYL given in lab by José Manuel Cano RN in Right Forearm via Peripheral IV. Ordered by Luis Stewart. RADIAL COCKTAIL 05/23/2017 3:54:07 PM 5 mL (Bolus) Luis Ansari 5 mL (Bolus) RADIAL COCKTAIL given in lab by Luis Ansari via Radial. Using [Solution Name]. Ord ered by Luis Ansari. VERSED 05/23/2017 3:54:40 PM 2 mg José Manuel Cano RN 2 mg VERSED given in lab by José Manuel Cano RN in Right Forearm via Peripheral IV. Ordered by Luis Ansari. OXYGEN 05/23/2017 3:54:51 PM 2 l/min José Manuel Cano RN 2 l/min OXYGEN given in lab by José Manuel Cano RN via Nasal. Ordered by Luis Ansari. HEPARIN 05/23/2017 4:03:07 PM 9000 units José Manuel Cano RN 9000 units HEPARIN given in lab by José Manuel Cano RN in Right Forearm via Peripheral IV. Ordered by Luis Puente. FENTANYL 05/23/2017 4:08:29 PM 50 mcg José Manuel Cano RN 50 mcg FENTANYL given in lab by José Manuel Cano RN in Right Forearm via Peripheral IV. Ordered by Luis Stewart. PLAVIX 05/23/2017 4:18:13 PM 600 mg Marilu Linton 600 mg PLAVIX given in lab by Marilu Linton RN via Oral. Ordered by Luis Ansari. Medication (Drip) Medication Time Given Dosage/Unit Concentration/Unit Diluent (ml) Solution IV Solutions 05/23/2017 3:15:27 PM 0 mL (IV) 500 NaCl .9 IV Solutions given in lab by Marilu Linton RN in Right Forearm via Peripheral IV. Pump/Drip Flow = 20 ml/hr using NaCl .9. Initial Case Assessment Cardiovascular HR Rhythm NIBP Chest Pain 65 sinus 149/66 0 Edema Present Skin color Skin None Normal Warm Dry Circulatory - Right Pulses Dorsalis Pedis Femoral Radial 2 2 2 Scale (0,1,2,3,4,d) Scale (0,1,2,3,4,d) Neurological State Oriented to time-place- Alert Moves all extremities person Respiration - General Respiration Rate SpO2 (%) O2 (lpm) (B/min) 16 95 0 Final Case Assessment Cardiovascular HR Rhythm NIBP Chest Pain 67 sinus 155/67 0 Edema Present Skin color Skin None Normal Warm Dry Circulatory - Right Pulses Dorsalis Pedis Femoral Radial 2 2 2 Scale (0,1,2,3,4,d) Scale (0,1,2,3,4,d) Neurological State Oriented to time-place- Alert Moves all extremities person Respiration - General Respiration Rate SpO2 (%) O2 (lpm) (B/min) 14 100 0 Chronological Log Time Study Chronological Log 14:59:06 Patient arrived via Bed. 14:59:07 Patient Name, D.O.B, / Armband Verified By R.N. 14:59:08 Consent signed by the physician and the patient and verified by the District Wire Chief staff. 14:59:13 Allens test performed on the left radial and ulnar artery. 14:59:21 Patient has been NPO for More than 6Hrs. 15:02:53 Skin Breakdown- none per patient. 15:09:09 Patient Warmer Placed on the Table. 15:09:11 Teena Prominences Protected 15:09:12 A # 20 IV was noted in the Forearm (right). Grade = 0. 15:10:00 History and physical on the chart or being dictated. Vitals capture started with the following parameters, Patient=Adult, Interval=5 min, Initial Pr awdppf=108 mmHg, 15:10:08 Deflation Rate=5 mmHg, Cuff placed on Left Arm 15:10:32 Reference ECG taken 15:11:14 HR=70 bpm, NSZB=669/66 mmhg, SpO2=95.0 %, Resp=23 B/min, Pain=0, Misa=10, He=2 15:11:29 Allens test performed on the right radial and ulnar artery. Assessment: Initial Case, HR=65 BPM, Rhythm=sinus, RXFO=081/66 mmhg, Chest Pain=0, Edema=None, Color=Normal, Skin = Warm, Dry 15:12:01 Right Pulses: Donald Ped=2, Femoral=2, Radial=2 Neurological: State=Alert, Ox3, SIMON Respiration: Resp=16 B/min, SpO2=95 %, O2=0 lpm 15:15:25 A # 20 IV was noted in the Forearm (right). Grade = 0 new iv started IV Solutions given in lab by Marilu Linton, ASHLEIGH in Right Forearm via Peripheral IV. Pump/Drip Flow = 20 ml/hr using 15:15:27 NaCl .9. 15:15:46 HR=68 bpm, IIWY=823/66 mmhg, SpO2=95.0 %, Resp=19 B/min, Pain=0, Misa=10, He=2 15:20:47 HR=67 bpm, CEBH=890/69 mmhg, SpO2=96 %, Resp=20 B/min, Pain=0, Misa=10, He=2 15:25:50 HR=62 bpm, YGFO=228/62 mmhg, SpO2=95.0 %, Resp=16 B/min, Pain=0, Misa=10, He=2 15:26:59 Pressure channel 1 zeroed. 15:27:21 Right groin, right arm and shoulder prepped with 2% chlorhexidine, and draped after a 3 min . waiting time. 15:30:47 HR=66 bpm, ZWTC=214/63 mmhg, SpO2=98.0 %, Resp=17 B/min, Pain=0, Misa=10, He=2 15:35:49 HR=69 bpm, INXM=916/68 mmhg, SpO2=98.0 %, Resp=17 B/min, Pain=0, Misa=10, He=2 15:40:48 HR=69 bpm, NROW=251/61 mmhg, SpO2=99.0 %, Resp=16 B/min, Pain=0, Misa=10, He=2 15:45:49 HR=71 bpm, VSAI=054/64 mmhg, SpO2=99.0 %, Resp=16 B/min, Pain=0, Misa=10, He=2 15:50:48 HR=70 bpm, TSJA=514/58 mmhg, LvU7=202.0 %, Resp=14 B/min, Pain=0, Misa=10, He=2 Time Out. Correct patient, correct procedure, correct physician, power injector not loaded with contrast with surgical 15:52:32 team present. Time Out Concurred by MD and individual staff in procedure. 15:53:13 Case Start 5 mL 1% XYLOCAINE given in lab by Luis Ansari in Right Radial via Subcutaneous. Ordered b y Coty, 15:53:14 Luis. 15:53:15 50 mcg FENTANYL given in lab by José Manuel Cano RN in Right Forearm via Peripheral IV. Ordered by Pedro. Coty 15:53:44 Access site was Radial Artery. A SHEATH, FR6 TRANSRADIAL SLENDER 10CM FR 6 was advanced into the Radial (right) using the Mega fied Seldinger 15:53:53 technique. 5 mL (Bolus) RADIAL COCKTAIL given in lab by Luis Ansari via Radial. Using [Solution Name ]. Ordered by Tyler 15:54:07 Pedro. Wilma 15:54:40 2 mg VERSED given in lab by José Manuel Cano RN in Right Forearm via Peripheral IV. Ordered by Pedro. Coty 15:54:51 2 l/min OXYGEN given in lab by José Manuel Cano RN via Nasal. Ordered by Pedro. Coty 15:55:51 HR=76 bpm, NIBP=99/46 mmhg, SpO2=94 %, Resp=17 B/min, Pain=0, Misa=10, He=2 A JR 4.0 INFINITI CATHETER FR 5 was advanced over a wire. OMNIPAQUE, 350 MG, 150ML 150ML was us ed for 15:56:21 injections. Recorded Pressure: Ao, HR=73, Condition=Condition 1 15:56:46 (Aorta) Ao 94/49/67 15:57:06 The RCA was injected and visualized at various angles. OMNIPAQUE, 350 MG, 150ML 150ML used . 15:57:16 Catheter was removed A JL 3.5 DXTERITY CATHETER FR 5 was advanced over a wire. OMNIPAQUE, 350 MG, 150ML 150ML was us ed for 15:57:17 injections. 15:59:22 Catheter was removed A JL 4.0 INFINITI CATHETER FR 5 was advanced over a wire. OMNIPAQUE, 350 MG, 150ML 150ML was us ed for 15:59:41 injections. 16:01:16 HR=67 bpm, SYQJ=422/61 mmhg, HsK4=947.0 %, Resp=12 B/min, Pain=0, Misa=10, He=2 16:02:03 Catheter was removed 16:03:07 9000 units HEPARIN given in lab by José Manuel Cano RN in Right Forearm via Peripheral IV. Orde red by Luis Ansari. A JR 4.0 GUIDE CATHETER FR 6 was advanced over a wire. OMNIPAQUE, 350 MG, 150ML 150ML was used for 16:04:41 injections. 16:05:49 HR=67 bpm, AQFK=836/59 mmhg, OvK9=119.0 %, Resp=11 B/min, Pain=0, Misa=10, He=2 16:06:14 A WIRE, RUNTHROUGH NS FLOPPY .014 180CM 180CM was inserted via Radial (right). 16:07:34 Interventional wire has crossed the lesion 16:08:29 50 mcg FENTANYL given in lab by José Manuel Cano RN in Right Forearm via Peripheral IV. Ordered by Luis Ansari. A STENT, 2.5 38MM DEVORA 2.5 38MM was advanced through a JR 4.0 GUIDE CATHETER FR 6 over a WIRE, 16:08:43 RUNTHROUGH NS FLOPPY .014 180CM 180CM. A STENT, 2.5 38MM DEVORA 2.5 38MM was deployed using a 30 DOROTHY INDEFLATOR at 14 atmospheres for 20 seconds in 16:09:21 the RCA Mid. 16:10:52 HR=59 bpm, VVFB=203/64 mmhg, XqI4=618.0 %, Resp=12 B/min, Pain=0, Misa=10, He=2 16:10:53 Delivery device removed 16:13:35 Wire removed 16:13:53 Catheter was removed 16:14:09 Case End PCI QA completed: Pre-Ezra - 3, Post Ezra - 3, Type - ~TYPE~, Length - 36 mm, Morphology - ~MOR PHOLOGY~, 16:14:27 Indications - Lesion > 50 non-stem, Pre-Stenosis - 80% and Post Stenosis - 0%. 16:15:11 PCI QA obtained from Rn Infusion 16:15:19 Catheter(s) removed without difficulty Radial Compression Device Used. 15 mLs of air placed in BAND, RADIAL COMPRESSION TR SHORT 24 24 CM. Affected 16:15:21 hand 100 % O2 saturation. 16:15:51 HR=66 bpm, JGQB=157/67 mmhg, YzM1=574.0 %, Resp=9 B/min, Pain=0, Misa=10, He=2 16:18:13 600 mg PLAVIX given in lab by Marilu Linton, ASHLEIGH via Oral. Ordered by Luis Ansari. Assessment: Final Case, HR=67 BPM, Rhythm=sinus, DAOG=296/67 mmhg, Chest Pain=0, Edema=None, Color=Normal, Skin = Warm, Dry 16:19:46 Right Pulses: Donald Ped=2, Femoral=2, Radial=2 Neurological: State=Alert, Ox3, SIMON Respiration: Resp=14 B/min, WwF9=259 %, O2=0 lpm 16:20:01 Vitals capture stopped. Vitals capture started with the following parameters, Patient=Adult, Interval=5 min, Initial Pr vmdnch=046 mmHg, 16:34:56 Deflation Rate=5 mmHg, Cuff placed on Left Arm 16:35:35 HR=62 bpm, GAVJ=442/70 mmhg, SpO2=89.0 %, Resp=7 B/min, Pain=0, Misa=10, He=2 16:40:34 HR=56 bpm, EUQG=972/66 mmhg, SpO2=92 %, Resp=13 B/min, Pain=0, Misa=10, He=2 16:45:35 HR=61 bpm, KOKX=562/74 mmhg, SpO2=93.0 %, Resp=14 B/min, Pain=0, Misa=10, He=2 16:50:34 HR=58 bpm, IAXZ=073/69 mmhg, SpO2=93.0 %, Resp=14 B/min, Pain=0, Misa=10, He=2 16:54:37 Vitals capture stopped. End Study - Contrast Media Used In Study Contrast Total Opened (mL) Total Used (mL) Total Wasted (mL) Omnipaque 60 60 0 End Study - Maximum Contrast Load Max Contrast Load (mL) 493.0 End Study - Radiation Exposure Fluoro Time (minutes) 7.4 End Study - Patient Disposition Complications Transferred To Interventional Outcome No Telemetry Bed successful
[2017-05-23] MEDS ORDERED: METOPROLOL TARTRATE 25 MG TAB PO SCH (21:00)
[2017-05-23] MEDS: FAMOTIDINE 20 MG TAB PO SCH (21:20)
[2017-05-23] MEDS: DONEPEZIL HCL 5 MG TAB PO SCH (21:20)
[2017-05-23] MEDS: ATORVASTATIN 80 MG TAB PO SCH (21:20)
[2017-05-24] VITALS (24 sets, daily range): BP systolic 120–152; BP diastolic 59–70; PULSE 62–92; RESP 16–18; TEMP 97.6–98.4; O2SAT 93–100
[2017-05-24] MEDS: RESP: ALBUTEROL 2.5 MG/IPRATROPIUM 0.5 MG NEB (SCH) NEB ×4 (03:21→19:56)
--- NOTE | 2017-05-24 05:26 | MA ---
cc: PORSHAMAXIM DATE May 23, 2017 DATE OF 1940 PROCEDURE PERFORMED 1. Left heart catheterization. 2. Selective right and left coronary angiography. 3. Successful PCI/PAULY to mid-right coronary artery. INDICATIONS Acute diastolic heart failure exacerbation in the setting of severe symptomatic aortic stenosis [place] [employer] Symptoms III. PROCEDURE DESCRIPTION Consent signed. The patient was brought into the cardiac cath in the fasting state. The right wrist was prepped and draped in sterile fashion. Using 1% lidocaine for local anesthesia and a micropuncture kit, a 6-Bahamian sheath was inserted into the right radial artery. Antispasmodic cocktail was given, then selective right and left coronary angiography was performed with a JR-4 and JL- 4 diagnostic catheters. Angiography was taken in multiple views. The ventricle was not crossed given known severe aortic stenosis. We identified a significant lesion in the right coronary artery which was long and eccentric amenable to PCI for which we proceeded to fix. For this the right coronary artery was engaged with a JR-4 guide. The vessel was wired with a Run-Through wire which was anchored distally in the PDA and the vessel was direct stented with a 2.5/38 drug-eluting stent. The stent was postdilated to high atmosphere with stent balloon. Final angiographic views revealed good stent position and expansion with ROSLYN-3 flow. The patient tolerated the procedure well without complications. ESTIMATED BLOOD LOSS Less than 10 cc. TOTAL CONTRAST USED 70 cc. The right radial access site was closed with a TR band. RESULTS AORTIC PRESSURE Aortic pressure was 94/49 with a mean of 67. ANGIOGRAPHY 1. The right coronary artery is a dominant vessel giving off the PDA, has significant disease 80% long obstruction from the proximal to the mid-segment of the right coronary artery 2. The left main is long and patent. It is giving off the left circumflex artery, a ramus and the LAD. 3. The LAD is a transapical vessel. It has no obstructive coronary artery disease and has ROSLYN-3 flow. It is giving off one diagonal vessel which is small and tortuous and patent. 4. The left circumflex artery is patent. It is composed mainly of one OM vessel which bifurcates. It is patent, tortuous and no obstructive coronary artery. 5. The ramus vessel is small, patent. No obstructive coronary artery disease. CONCLUSION 1. Successful PCI/PAULY to mid-right coronary artery. 2. Severe symptomatic aortic stenosis. RECOMMENDATIONS The patient will go to [facility] for post-cath care. She will get IV hydration. She has been started on aspirin and Plavix. I will continue aggressive medical management for secondary prevention of CAD. Continue her AVR versus TAVR workup while inpatient. MD LIONEL Escamilla/PONCE /4:21 PM /4:59 AM [email or web address]
[2017-05-24] MEDS: LEVOTHYROXINE SODIUM 25 MCG TAB PO SCH (05:27)
[2017-05-24 07:39] LABS: BICARBONATE 24.7 MEQ/L (21.0-32.0); MAGNESIUM 1.7 MG/DL (1.5-2.5); POTASSIUM 3.8 MEQ/L (3.5-5.1)
[2017-05-24] MEDS: SODIUM CHLORIDE 0.9% FLUSH 10 ML FLUSH IV FLUSH SCH ×2 (09:00→23:06)
[2017-05-24] MEDS: LISINOPRIL 20 MG TAB PO SCH (09:00)
[2017-05-24] MEDS ORDERED: LISINOPRIL 5 MG TAB PO SCH (09:00)
[2017-05-24] MEDS: PANTOPRAZOLE SOD 20 MG DELAYED RELEASE TAB PO SCH (09:00)
[2017-05-24] MEDS: METOPROLOL TARTRATE 100 MG TAB PO SCH (09:00)
[2017-05-24] MEDS: OSELTAMIVIR PHOSPHATE 75 MG CAP PO SCH (09:00)
[2017-05-24] MEDS: CLOPIDOGREL 75 MG TAB PO SCH (09:00)
[2017-05-24] MEDS: ASPIRIN 81 MG CHEW TAB PO SCH (09:00)
[2017-05-24] MEDS: POTASSIUM CHLORIDE 10 MEQ CONTROLLED RELEASE TAB PO SCH ×2 (09:00→23:06)
[2017-05-24] MEDS: FUROSEMIDE 40 MG/4 ML VIAL IVP SCH (09:00)
[2017-05-24] MEDS ORDERED: PNEUMOCOCCAL POLYVALENT INJ 25 MCG/0.5 ML SYR IM ONE (10:00)
[2017-05-24] MEDS ORDERED: INFLUENZA VIRUS VACCINE (QUADRIVALENT) 0.5 ML SYR IM ONE (10:00)
--- NOTE | 2017-05-24 11:27 | PD.CAR.PN ---
CVT Progress Note Subjective/Hospital Course: sts data discussed with pt RISK SCORES About the STS Risk Calculator Procedure: AV Replacement Risk of Mortality: 7.568% Morbidity or Mortality: 38.262% Long Length of Stay: 22.643% Short Length of Stay: 9.948% Permanent Stroke: 3.111% Prolonged Ventilation: 31.757% DSW Infection: 1.011% Renal Failure: 18.472% Reoperation: 11.072% Objective: Vital Signs Date Time Temp Pulse Resp B/P (MAP) Pulse Ox O2 Delivery O2 Flow Rate FiO2 05/24/17 08:45 97.9 90 18 120/67 (84) 94 05/24/17 08:45 94 Nasal Cannula 2.00 05/24/17 08:17 93 05/24/17 07:01 70 05/24/17 04:00 98.0 71 16 129/68 (88) 99 05/24/17 04:00 83 05/24/17 00:00 68 05/24/17 00:00 97.6 76 16 152/70 (97) 98 05/23/17 22:23 Nasal Cannula 2.00 05/23/17 22:17 94 21 05/23/17 20:00 Nasal Cannula 2.00 05/23/17 20:00 59 05/23/17 20:00 98.5 63 18 160/71 (100) 98 05/23/17 18:00 59 05/23/17 18:00 98.3 62 18 165/76 (105) 95 05/23/17 12:10 82 05/23/17 12:04 98.6 70 20 144/63 (90) 92 05/23/17 11:56 92 21 Labs: Laboratory Tests Test 05/24/17 05:44 Blood Urea Nitrogen 39 MG/DL (7-18) Creatinine 1.90 MG/DL (0.50-1.00) Random Glucose 89 MG/DL (74-106) Calcium Level 8.5 MG/DL (8.5-10.1) Phosphorus Level 3.2 MG/DL (2.5-4.9) Magnesium Level 1.7 MG/DL (1.5-2.5) Sodium Level 139 MEQ/L (136-145) Potassium Level 3.8 MEQ/L (3.5-5.1) Chloride Level 103 MEQ/L (98-107) Carbon Dioxide Level 24.7 MEQ/L (21.0-32.0) Anion Gap 11 MEQ/L (5-15) Estimat Glomerular Filtration Rate 31 ML/MIN (>89) B-Type Natriuretic Peptide 150 PG/ML (0-100) Result Diagram: 05/23/17 0222 05/24/17 0544 (1) CHF (congestive heart failure) Plan: 76 y/o F admitted with SOB concerning for new onset HF. Murmur on exam suggestive of severe . Currently she reports feeling well no CV complaints. Recommendations: 1. 2Decho TODAY. If severe will schedule cath for pre-op 2. Strict I&O 3. Daily weights 4. Low salt diet 5. IV diuresis 6. Check TSH 7. Cont BB, ACEi, Statin and ASA Further management to be determine (2) Influenza (3) Elevated troponin Problem Qualifiers (1) CHF (congestive heart failure): Qualified Codes: I50.9 - Heart failure, unspecified Araceli Montes May 24, 2017 11:27
--- NOTE | 2017-05-24 11:36 | PD.FRAIL ---
Date: May 24, 2017 Height: 165.1 cm Weight: 126.4 kg BMI: 46.4 Assessment Performed: Inpatient Days in Hospital at Exam: 2 Albumin 05/22/17 19:55: Blood Urea Nitrogen 28, Creatinine 1.36, Random Glucose 108, Total Protein 7.7, Albumin 3.4, Calcium Level 8.6, Magnesium Level 2.0, Alkaline Phosphatase 83, Aspartate Amino Transf (AST/SGOT) 24, Alanine Aminotransferase (ALT/SGPT) 18, Total Bilirubin 0.3, Sodium Level 140, Potassium Level 4.6, Chloride Level 105, Carbon Dioxide Level 27.1 Pass/Fail: Fail Quintana Activities Daily Living Quintana ADL Score: Bathing(bathes self/help in single area): [place] (1), Dressing(gets/puts clothes on self): [place] (1), Toileting(goes without help): [place] ( 1), Transferring([facility]assisted or [facility]): [place] (1), Continence( complete self-control): [place] (1), Feeding(self, prep by another allowed) : [place] (1), Total: 6 Pass/Fail: Pass Aviation Mechanic Strength Grasp 1: 25 Grasp 2: 28 Grasp 3: 26 Average: 26.3 Pass/Fail: Pass 15-Foot Walk 15-Foot Walk (seconds): 12 (walks with walker or cane) Pass/Fail: Fail Total Frailty Total Frailty (out of 4): 2 Frailty Index Score Reference Aviation Mechanic Strength: BMI: <=23 Cutoff for senior net engineer strength(Kg): <=17 BMI: 23.1-26 Cutoff for senior net engineer strength(Kg): <=17.3 BMI: 26.1-29 Cutoff for senior net engineer strength(Kg): <=18 BMI: >29 Cutoff for senior net engineer strength(Kg): <=21 15-Foot Walk: Height: <=159 cm 15-Foot Walk Cutoff Time: >=7 seconds Height: >159 cm 15-Foot Walk Cutoff Time: >=6 seconds Romi Roth RN May 24, 2017 11:36
--- NOTE | 2017-05-24 12:29 | PD.CARD.PN ---
Subjective Subjective Remarks No complaints Objective Medications Current Medications Medications (Trade) Dose Ordered Sig/Elana Route Start Time Stop Time Status Last Admin (NS Flush) 2 ml BID IV FLUSH 05/23/17 09:00 05/24/17 09:00 (NS Flush) 2 ml UNSCH PRN IV FLUSH 05/22/17 21:30 05/23/17 00:41 (Lasix Inj) 40 mg BID@,18 IVP 05/23/17 09:00 05/24/17 09:00 (KCl) 10 meq BID PO 05/23/17 09:00 05/24/17 09:00 (Lipitor) 80 mg HS PO 05/22/17 21:45 05/23/17 21:20 (Aricept) 5 mg HS PO 05/22/17 21:45 05/23/17 21:20 (Synthroid) 25 mcg DAILY@0600 PO 05/23/17 06:00 05/24/17 05:27 (Lopressor) 100 mg DAILY PO 05/23/17 09:00 05/24/17 09:00 (Prinivil) 40 mg DAILY PO 05/23/17 09:00 05/24/17 09:00 (Protonix) 20 mg DAILY PO 05/23/17 09:00 05/24/17 09:00 (Pepcid) 20 mg HS PO 05/22/17 21:45 05/23/17 21:20 (Tamiflu) 75 mg DAILY PO 05/23/17 09:00 05/24/17 09:00 (Duoneb Neb) 1 ampule Q4HR NEB PRN NEB 05/23/17 00:30 05/23/17 00:40 (Duoneb Neb) 1 ampule Q6HR NEB NEB 05/23/17 04:00 05/24/17 08:16 (Aspirin Chew) 81 mg DAILY PO 05/24/17 09:00 05/24/17 09:00 (Plavix) 75 mg DAILY PO 05/24/17 09:00 05/24/17 09:00 Vital Signs / I&O Vital Signs Date Time Temp Pulse Resp B/P (MAP) Pulse Ox O2 Delivery O2 Flow Rate FiO2 05/24/17 11:01 98.0 72 18 145/67 (93) 100 05/24/17 08:45 97.9 90 18 120/67 (84) 94 05/24/17 08:45 94 Nasal Cannula 2.00 05/24/17 08:17 93 05/24/17 07:01 70 05/24/17 04:00 98.0 71 16 129/68 (88) 99 05/24/17 04:00 83 05/24/17 00:00 68 05/24/17 00:00 97.6 76 16 152/70 (97) 98 05/23/17 22:23 Nasal Cannula 2.00 05/23/17 22:17 94 21 05/23/17 20:00 Nasal Cannula 2.00 05/23/17 20:00 59 05/23/17 20:00 98.5 63 18 160/71 (100) 98 05/23/17 18:00 59 05/23/17 18:00 98.3 62 18 165/76 (105) 95 I/O 05/23/17 05/23/17 05/23/17 05/24/17 05/24/17 05/24/17 07:00 15:00 23:00 07:00 15:00 23:00 Intake Total 240 ml 360 ml Balance 240 ml 360 ml Intake Oral 240 ml 360 ml # Voids 2 0 3 # Bowel Movements 0 Physical Exam GENERAL: Well-nourished, well-developed patient. SKIN: Warm and dry. HEAD: Normocephalic. EYES: No scleral icterus. No injection or drainage. NECK: Supple, trachea midline. No JVD or lymphadenopathy. CARDIOVASCULAR: Regular rate and rhythm 3/6 murmurs, gallops, or rubs. RESPIRATORY: Breath sounds equal bilaterally. No accessory muscle use. GASTROINTESTINAL: Abdomen soft, non-tender, nondistended. EXTREMITIES: No cyanosis, or edema. NEUROLOGICAL: Awake, alert, and oriented x 3. Non-focal. Laboratory Laboratory Tests Test 05/24/17 05:44 Blood Urea Nitrogen 39 MG/DL Creatinine 1.90 MG/DL Random Glucose 89 MG/DL Calcium Level 8.5 MG/DL Phosphorus Level 3.2 MG/DL Magnesium Level 1.7 MG/DL Sodium Level 139 MEQ/L Potassium Level 3.8 MEQ/L Chloride Level 103 MEQ/L Carbon Dioxide Level 24.7 MEQ/L Anion Gap 11 MEQ/L Estimat Glomerular Filtration Rate 31 ML/MIN B-Type Natriuretic Peptide 150 PG/ML Imaging Last Impressions Chest X-Ray 05/22/17 5310 Signed Impressions: Service Date/Time: Monday, May 22, 2017 19:18 - CONCLUSION: 1. Probable dependent atelectasis. No effusion or pneumothorax. Roberto Alcala MD Assessment and Plan Problem List: (1) Elevated troponin ICD Codes: R74.8 - Abnormal levels of other serum enzymes Status: Acute Plan: s/p PCI/PAULY to RCA Acute on chronic diastolic HF Severe symptomatic Aortic Stenosis MONISHA 2/4 Frail Recommendations: Hold ACEi and Lasix IV Hydration Monitor BMP in AM Cont DAPT with ASA and Plavix Cont TAVR work up (2) CHF (congestive heart failure) ICD Codes: I50.9 - Heart failure, unspecified Status: Acute (3) Influenza ICD Codes: J11.1 - Influenza due to unidentified influenza virus with other respiratory manifestations Status: Acute Problem Qualifiers (1) CHF (congestive heart failure): Qualified Codes: I50.9 - Heart failure, unspecified Luis Ansari MD May 24, 2017 12:29
[2017-05-24] MEDS: SODIUM CHLOR 0.9% 1000 ML INJ 1,000 ML IV SCH ×2 (12:30→22:30)
--- NOTE | 2017-05-24 12:33 | HHI.PR ---
Subjective Remarks Patient states she is feeling well. She denies any shortness of breath. Denies any chest pain. Denies cough. Stable on room air. Ambulating to the bathroom. Had a bowel movement this morning. Objective Vitals Vital Signs Date Time Temp Pulse Resp B/P (MAP) Pulse Ox O2 Delivery O2 Flow Rate FiO2 05/24/17 11:01 98.0 72 18 145/67 (93) 100 05/24/17 08:45 97.9 90 18 120/67 (84) 94 05/24/17 08:45 94 Nasal Cannula 2.00 05/24/17 08:17 93 05/24/17 07:01 70 05/24/17 04:00 98.0 71 16 129/68 (88) 99 05/24/17 04:00 83 05/24/17 00:00 68 05/24/17 00:00 97.6 76 16 152/70 (97) 98 05/23/17 22:23 Nasal Cannula 2.00 05/23/17 22:17 94 21 05/23/17 20:00 Nasal Cannula 2.00 05/23/17 20:00 59 05/23/17 20:00 98.5 63 18 160/71 (100) 98 05/23/17 18:00 59 05/23/17 18:00 98.3 62 18 165/76 (105) 95 I/O 05/23/17 05/23/17 05/23/17 05/24/17 05/24/17 05/24/17 07:00 15:00 23:00 07:00 15:00 23:00 Intake Total 240 ml 360 ml Balance 240 ml 360 ml Intake Oral 240 ml 360 ml # Voids 2 0 3 # Bowel Movements 0 Result Diagram: 05/23/17 0222 05/24/17 0544 Objective Remarks GENERAL: Well-nourished, well-developed very pleasant elderly female patient. SKIN: Warm and dry. HEAD: Normocephalic. EYES: No scleral icterus. No injection or drainage. NECK: Supple, trachea midline. No JVD or lymphadenopathy. CARDIOVASCULAR: Regular rate and rhythm. 2/6 systolic murmur at left sternal border. RESPIRATORY: Breath sounds equal bilaterally. No accessory muscle use. GASTROINTESTINAL: Abdomen soft, non-tender, nondistended. EXTREMITIES: No cyanosis, or edema. NEUROLOGICAL: Awake, alert, and oriented x 3. Non-focal. A/P Problem List: (1) Aortic valve stenosis, severe ICD Code: I35.0 - Nonrheumatic aortic (valve) stenosis (2) NSTEMI (non-ST elevated myocardial infarction) ICD Code: I21.4 - Non-ST elevation (NSTEMI) myocardial infarction (3) CAD (coronary artery disease) ICD Code: I25.10 - Atherosclerotic heart disease of [place] coronary artery without angina pectoris (4) Influenza ICD Code: J11.1 - Influenza due to unidentified influenza virus with other respiratory manifestations Status: Acute (5) MONISHA (acute kidney injury) ICD Code: N17.9 - Acute kidney failure, unspecified (6) CKD (chronic kidney disease), stage III ICD Code: N18.3 - Chronic kidney disease, stage 3 (moderate) Assessment and Plan -Coronary artery disease/NSTEMI-status post left heart catheterization on May 23 with placement of a drug-eluting stent to the mid RCA by Dr. Alcala. EF was normal. Continue aspirin and Plavix. Metoprolol. Lipitor. -Severe and symptomatic aortic stenosis valve surface 0.53 with gradient 0.67 along with Trace MR and trace TR, moderate AR showing on 2-D echo, EF 55-60%, CT surgery has been consulted. -Positive influenza A - doing well. Continue Tamiflu through May 28. Chest x-ray was negative for pneumonia. -MONISHA on Chronic kidney disease stable 3 - creatinine did increase to 1.9 overnight. Continue Anas at 100 mL per hour and repeat BMP in the morning. -Hypertension - continue metoprolol. -Hypothyroidism - continue Synthroid -Early dementia. Continue Aricept. DVT prophylaxis - SCDs. Maria T Lanier MD May 24, 2017 12:33
[2017-05-24] MEDS ORDERED: IOHEXOL 350 MG/ML 100 ML BTL (for Cath Lab) OTHER ONE (12:59)
--- NOTE | 2017-05-24 15:22 | MH ---
cc: RYDER KERR MD DATE OF ADMISSION: 05/22/2017 HISTORY OF PRESENT ILLNESS: 76-year-old female patient presented to the emergency room with shortness of breath which she has been having off and on for the past one month with exertion. Recently developed cough, had some chills. No prior history of COPD or congestive heart failure. She also had some lower extremity edema. She underwent complete workup. Her nasal washing was positive for influenza A. Troponin was elevated at 0.29. EKG showed sinus rhythm with a rare PVC otherwise unremarkable. She has been treated with Tamiflu. She denied having any chest pain, palpitations or syncope. Cardiology was consulted for the heart failure evaluation. She underwent echocardiogram, which showed an ejection fraction of 55% to 60%; however, she had mild to moderate aortic valve insufficiency with severe aortic valve stenosis of the aortic valve area 0.58. The aortic valve gradient of 67. Some trace tricuspid regurgitation. We were consulted after she underwent cardiac catheterization where she had successful percutaneous coronary intervention with drug-eluting stent to the right coronary artery. We were consulted for severe aortic stenosis. PAST MEDICAL HISTORY: The patient's past medical history includes: 1. Hypertension. 2. Hyperlipidemia. 3. Hypothyroidism. 4. Left sided breast cancer in 2014 followed by mastectomy, radiation and chemotherapy. Her last dose of radiation and chemotherapy was in 2016. Her oncologist is Dr. Delong. 5. Coronary artery disease. 6. Aortic stenosis. PAST SURGICAL HISTORY: Surgeries include: 1. Left mastectomy in 2015. 2. Bilateral knee replacement. 3. Left heel spur. 4. Bilateral tubal ligation. 5. She has had eye surgery. 6. She had a recent catheterization with drug-eluting stent to the right coronary artery on 05/23. ALLERGIES: 1. SULFA. 2. HYDROCODONE. HOME MEDICATIONS: 1. Donepezil. 2. Atorvastatin. 3. Metoprolol. 4. Lisinopril. 5. Potassium. 6. Lasix. 7. Hydrochlorothiazide. 8. Zantac. 9. Omeprazole. 10. Levothyroxine. 11. Allopurinol. 12. She is also now on Plavix 75 milligrams. FAMILY HISTORY: Mother from congestive heart failure. Father also from complications of congestive heart failure. SOCIAL HISTORY: The patient is , two children, smoked 25 to 30 years one pack, she quit in 1979, rare alcohol, no illicit drugs. REVIEW OF SYSTEMS: GENERAL: In general, no night sweats, fever, heat or cold intolerance. SKIN: No psoriasis, itching or hives. HEAD, EYES, EARS, NOSE, THROAT: No blurred vision. She is unable to drive though due to her eyesight. RESPIRATORY: Positive for recent cough, chills, congestion. CARDIOVASCULAR: No chest pain. Positive for lower extremity edema. GENITOURINARY: No burning frequency, urgency HEAD SETTER: No history of TIA, CVA, seizure disorder. ENDOCRINE: No history of diabetes or hypothyroidism. PHYSICAL EXAMINATION: VITAL SIGNS: Blood pressure 145/60, heart rate of 70, temperature max 98, she is on room air at 100%. GENERAL: The patient is sitting up in bed alert and oriented and in no acute distress. HEAD, EYES, EARS, NOSE, THROAT: Head is normocephalic, atraumatic. Pupils equal and reactive. Oral mucosa pink, moist. NECK: The neck is supple. No jugular venous distention. HEART: Heart sounds S1-S2 with a grade 2-3/6 systolic ejection murmur. No gallops or rubs. LUNGS: Diminished in the bases, more on the left versus the right. Faint expiratory wheeze. ABDOMEN: Abdomen obese, soft and nontender. No masses or organomegaly. EXTREMITIES: No cyanosis, clubbing. Trace edema. LABORATORY DATA: Lab work shows hemoglobin of 11, hematocrit of 36, white cell count of 8, platelet count of 173,000. Sodium 139, potassium 3.8, BUN of 39, creatinine 1.90. Troponin 0.29. BNP was 1226 and now 150. INR 1.1. Microbiology positive for antigen flu A IMAGING STUDIES: Chest x-ray shows probable atelectasis, no effusion or pneumothorax. IMPRESSION: This is a 76-year-old female with status post echocardiogram showing severe aortic stenosis with aortic valve area of 0.58, a mean gradient of 67, status post heart catheterization with drug-eluting stent to the right coronary artery now on aspirin and Plavix. The patient is being evaluated for aortic valve replacement versus transcatheter aortic valve replacement. Her SDS risk of mortality is 7.58 and other risk factors including morbid obesity, chronic kidney disease, age, coronary artery disease, poor mobility, frailty score 2/4, [place] [employer] III. RECOMMENDATIONS: Evaluation for transcatheter aortic valve at this time. Dictated by HAMLET Simon. Ryder ROBLEDO/ANGEL /2:42 PM /8:05 AM
[2017-05-24] MEDS: FAMOTIDINE 20 MG TAB PO SCH (23:05)
[2017-05-24] MEDS: ATORVASTATIN 80 MG TAB PO SCH (23:05)
[2017-05-24] MEDS: DONEPEZIL HCL 5 MG TAB PO SCH (23:06)
[2017-05-25] VITALS (24 sets, daily range): BP systolic 122–158; BP diastolic 50–68; PULSE 60–102; RESP 14–20; TEMP 98–98.9; O2SAT 95–99
[2017-05-25] MEDS: RESP: ALBUTEROL 2.5 MG/IPRATROPIUM 0.5 MG NEB (SCH) NEB ×4 (03:45→20:56)
[2017-05-25] MEDS: LEVOTHYROXINE SODIUM 25 MCG TAB PO SCH (05:34)
[2017-05-25] MEDS: SODIUM CHLOR 0.9% 1000 ML INJ 1,000 ML IV SCH ×3 (06:06→21:34)
[2017-05-25 07:01] LABS: AUTOMATED NEUTROPHIL # 2.4 TH/MM3 (1.8-7.7); BASOPHIL % 0.4 % (0.0-2.0); EOSINOPHIL % 0.8 % (0.0-4.0); HEMATOCRIT 29.6 % (35.0-46.0); HEMO FLAGS DIFF FINAL; LYMPH % 16.7 % (9.0-44.0); LYMPHOCYTE # 0.6 TH/MM3 (1.0-4.8); MEAN CELL VOLUME 92.5 FL (80.0-100.0); MEAN CORPUSCULAR HEMOGLOBIN 30.2 PG (27.0-34.0); MEAN CORPUSCULAR HGB CONC 32.7 % (32.0-36.0); MONO % 19.2 % (0.0-8.0); NEUT % 62.9 % (16.0-70.0); PLATELET COUNT 140 TH/MM3 (150-450); RED CELL DISTRIBUTION WIDTH 15.6 % (11.6-17.2); WHITE BLOOD COUNT 3.8 TH/MM3 (4.0-11.0)
[2017-05-25 07:06] LABS: BICARBONATE 21.9 MEQ/L (21.0-32.0); POTASSIUM 3.7 MEQ/L (3.5-5.1)
[2017-05-25] MEDS: POTASSIUM CHLORIDE 10 MEQ CONTROLLED RELEASE TAB PO SCH ×2 (08:54→21:32)
[2017-05-25] MEDS: PANTOPRAZOLE SOD 20 MG DELAYED RELEASE TAB PO SCH (08:55)
[2017-05-25] MEDS: SODIUM CHLORIDE 0.9% FLUSH 10 ML FLUSH IV FLUSH SCH ×2 (08:55→21:00)
[2017-05-25] MEDS: METOPROLOL TARTRATE 100 MG TAB PO SCH (08:55)
[2017-05-25] MEDS: OSELTAMIVIR PHOSPHATE 75 MG CAP PO SCH (08:55)
[2017-05-25] MEDS: CLOPIDOGREL 75 MG TAB PO SCH (08:55)
[2017-05-25] MEDS: ASPIRIN 81 MG CHEW TAB PO SCH (08:55)
--- NOTE | 2017-05-25 10:27 | PD.CONS ---
History of Present Illness Service CT Surgery Consult Requested By Dr. Alcala Reason for Consult Severe symptomatic aortic stenosis Primary Care Physician Unknown Diagnoses: History of Present Illness 76-year-old female presented to the emergency room with shortness of breath. She has been having exertional SOB for approximately 4-6 weeks, but this was more severe leading to her presentation. She also recently developed cough, had some chills. She also had some lower extremity edema. She underwent complete workup. Her nasal washing was positive for influenza A. Troponin was elevated at 0.29. She denied having any chest pain, palpitations or syncope. Cardiology was consulted for the heart failure evaluation. She underwent echocardiogram, which showed an ejection fraction of 55% to 60%; however, she had mild to moderate aortic valve insufficiency with severe aortic valve stenosis of the aortic valve area 0.58. The aortic valve gradient of 67. She underwent cardiac catheterization where she had successful percutaneous coronary intervention with drug-eluting stent to the right coronary artery. Review of Systems Constitutional: COMPLAINS OF: Fatigue, Fever, Chills, DENIES: Diaphoretic episodes, Weight gain, Weight loss, Dizziness, Change in appetite, Night Sweats Endocrine: DENIES: Abnorml menstrual pattern, Heat/cold intolerance, Polydipsia , Polyuria, Polyphagia Eyes: COMPLAINS OF: Blurred vision, DENIES: Diplopia, Eye inflammation, Eye pain, Vision loss, Photosensitivity, Double Vision Ears, nose, mouth, throat: DENIES: Tinnitus, Hearing loss, Vertigo, Nasal discharge, Oral lesions, Throat pain, Hoarseness, Ear Pain, Running Nose, Epistaxis, Sinus Pain, Toothache, Odynophagia Respiratory: COMPLAINS OF: Cough, Shortness of breath, DENIES: Apneas, Snoring , Wheezing, Hemoptysis, Sputum production Cardiovascular: COMPLAINS OF: Dyspnea on Exertion, Lower Extremity Edema, DENIES: Chest pain, Palpitations, Syncope, PND, Orthopnea, Claudication Gastrointestinal: DENIES: Abdominal pain, Black stools, Bloody stools, Constipation, Diarrhea, Nausea, Vomiting, Difficulty Swallowing, Anorexia Genitourinary: DENIES: Abnormal vaginal bleeding, Dysmenorrhea, Dyspareunia, Sexual dysfunction, Urinary frequency, Urinary incontinence, Urgency, Hematuria , Dysuria, Nocturia, Vaginal discharge Musculoskeletal: COMPLAINS OF: Muscle aches, Stiffness, DENIES: Joint pain, Joint Swelling, Back pain, Neck pain Integumentary: DENIES: Abnormal pigmentation, Pruritus, Rash, Nail changes, Breast masses, Breast skin changes, Nipple discharge Hematologic/lymphatic: DENIES: Bruising, Lymphadenopathy Immunologic/allergic: DENIES: Eczema, Urticaria Neurologic: DENIES: Abnormal gait, Headache, Localized weakness, Paresthesias, Seizures, Speech Problems, Tremor, Poor Balance Psychiatric: DENIES: Anxiety, Confusion, Mood changes, Depression, Hallucinations, Agitation, Suicidal Ideation, Homicidal Ideation, Delusions Past Family Social History Allergies: Coded Allergies: Sulfa (Sulfonamide Antibiotics) (Unverified Allergy, Severe, SWELLING, ITCHING, 05/22/17) hydrocodone (Unverified Adverse Reaction, Severe, Nausea/Vomiting, ) Past Medical History 1. Hypertension. 2. Hyperlipidemia. 3. Hypothyroidism. 4. Left sided breast cancer in 2014 followed by mastectomy, radiation and chemotherapy. Her last dose of radiation and chemotherapy was in 2015. Her oncologist is Dr. Delong. 5. Coronary artery disease. 6. Aortic stenosis. PAST SURGICAL HISTORY: Surgeries include: 1. Left mastectomy in 2015. 2. Bilateral knee replacement. 3. Left heel spur. 4. Bilateral tubal ligation. 5. She has had eye surgery. 6. She had a recent catheterization with drug-eluting stent to the right coronary artery on 05/23. HOME MEDICATIONS: 1. Donepezil. 2. Atorvastatin. 3. Metoprolol. 4. Lisinopril. 5. Potassium. 6. Lasix. 7. Hydrochlorothiazide. 8. Zantac. 9. Omeprazole. 10. Levothyroxine. 11. Allopurinol. 12. She is also now on Plavix 75 milligrams. FAMILY HISTORY: Mother from congestive heart failure. Father also from complications of congestive heart failure. SOCIAL HISTORY: The patient is , two children, smoked 25 to 30 years one pack, she quit in 1979, rare alcohol, no illicit drugs. Active Ordered Medications Current Medications Medications (Trade) Dose Ordered Sig/Elana Route Start Time Stop Time Status Last Admin (NS Flush) 2 ml BID IV FLUSH 05/23/17 09:00 05/25/17 08:55 (NS Flush) 2 ml UNSCH PRN IV FLUSH 05/22/17 21:30 05/23/17 00:41 (Lasix Inj) 40 mg BID@,18 IVP 05/23/17 09:00 Future Hold 05/24/17 09:00 (KCl) 10 meq BID PO 05/23/17 09:00 05/25/17 08:54 (Lipitor) 80 mg HS PO 05/22/17 21:45 05/24/17 23:05 (Aricept) 5 mg HS PO 05/22/17 21:45 05/24/17 23:06 (Synthroid) 25 mcg DAILY@0600 PO 05/23/17 06:00 05/25/17 05:34 (Lopressor) 100 mg DAILY PO 05/23/17 09:00 05/25/17 08:55 (Prinivil) 40 mg DAILY PO 05/23/17 09:00 Future Hold 05/24/17 09:00 (Protonix) 20 mg DAILY PO 05/23/17 09:00 05/25/17 08:55 (Pepcid) 20 mg HS PO 05/22/17 21:45 05/24/17 23:05 (Tamiflu) 75 mg DAILY PO 05/23/17 09:00 05/25/17 08:55 (Duoneb Neb) 1 ampule Q4HR NEB PRN NEB 05/23/17 00:30 05/23/17 00:40 (Duoneb Neb) 1 ampule Q6HR NEB NEB 05/23/17 04:00 05/25/17 03:45 (Aspirin Chew) 81 mg DAILY PO 05/24/17 09:00 05/25/17 08:55 (Plavix) 75 mg DAILY PO 05/24/17 09:00 05/25/17 08:55 Sodium Chloride 1,000 ml @ 42 mls/hr [id number] IV 05/25/17 10:00 Physical Exam Vital Signs Vital Signs Date Time Temp Pulse Resp B/P (MAP) Pulse Ox O2 Delivery O2 Flow Rate FiO2 05/25/17 10:14 74 05/25/17 09:50 60 05/25/17 08:00 98.6 100 20 135/63 (87) 95 05/25/17 08:00 96 05/25/17 08:00 95 Room Air 05/25/17 06:00 94 05/25/17 05:00 94 05/25/17 04:00 98.8 92 20 143/58 (86) 95 05/25/17 04:00 83 05/25/17 03:00 82 05/25/17 02:00 74 05/25/17 01:00 78 05/25/17 00:00 72 05/25/17 00:00 98.9 96 20 158/68 (98) 98 05/24/17 23:00 86 05/24/17 22:00 82 05/24/17 21:00 86 05/24/17 20:00 98.3 80 18 137/70 (92) 96 05/24/17 20:00 72 05/24/17 20:00 96 Nasal Cannula 2.00 05/24/17 19:56 97 05/24/17 19:00 74 05/24/17 18:00 76 05/24/17 17:00 64 05/24/17 16:00 66 05/24/17 15:15 98.4 67 18 130/59 (82) 97 05/24/17 15:00 62 05/24/17 14:00 70 05/24/17 13:00 70 05/24/17 12:01 76 05/24/17 11:01 98.0 72 18 145/67 (93) 100 05/24/17 11:00 92 Physical Exam GENERAL: This is a well-nourished, well-developed patient, in no apparent distress. SKIN: No rashes, ecchymoses or lesions. Cool and dry. HEAD: Atraumatic. Normocephalic. No temporal or scalp tenderness. EYES: Pupils equal round and reactive. Extraocular motions intact. No scleral icterus. No injection or drainage. ENT: Nose without bleeding, purulent drainage or septal hematoma. Throat without erythema, tonsillar hypertrophy or exudate. Uvula midline. Airway patent. NECK: Trachea midline. No JVD or lymphadenopathy. Supple, nontender, no meningeal signs. CARDIOVASCULAR: Regular rate and rhythm with 2/6 JOHANNA.. RESPIRATORY: Clear to auscultation. Breath sounds equal bilaterally. No wheezes , rales, or rhonchi. GASTROINTESTINAL: Abdomen soft, non-tender, nondistended. No hepato-splenomegaly , or palpable masses. No guarding. MUSCULOSKELETAL: Extremities without clubbing, cyanosis, 1+ edema. No joint tenderness, effusion, or edema noted. No calf tenderness. Negative Homans sign bilaterally. NEUROLOGICAL: Awake and alert. Cranial nerves II through XII intact. Motor and sensory grossly within normal limits. Five out of 5 muscle strength in all muscle groups. Normal speech. Laboratory Laboratory Tests Test 05/25/17 05:54 White Blood Count 3.8 Red Blood Count 3.20 Hemoglobin 9.7 Hematocrit 29.6 Mean Corpuscular Volume 92.5 Mean Corpuscular Hemoglobin 30.2 Mean Corpuscular Hemoglobin Concent 32.7 Red Cell Distribution Width 15.6 Platelet Count 140 Mean Platelet Volume 8.6 Neutrophils (%) (Auto) 62.9 Lymphocytes (%) (Auto) 16.7 Monocytes (%) (Auto) 19.2 Eosinophils (%) (Auto) 0.8 Basophils (%) (Auto) 0.4 Neutrophils # (Auto) 2.4 Lymphocytes # (Auto) 0.6 Monocytes # (Auto) 0.7 Eosinophils # (Auto) 0.0 Basophils # (Auto) 0.0 CBC Comment DIFF FINAL Differential Comment Blood Urea Nitrogen 42 Creatinine 2.02 Random Glucose 110 Calcium Level 7.8 Sodium Level 139 Potassium Level 3.7 Chloride Level 107 Carbon Dioxide Level 21.9 Anion Gap 10 Estimat Glomerular Filtration Rate 29 Date/Time Source Procedure Growth Status 05/22/17 19:20 Nasal Washing Influenza Types A,B Antigen (OMAIRA) - Final Positive For Flu A Antigen Complete Result Diagram: 05/25/17 0554 05/25/17 0554 Imaging Last Impressions Chest X-Ray 05/22/17 1859 Signed Impressions: Service Date/Time: Monday, May 22, 2017 19:18 - CONCLUSION: 1. Probable dependent atelectasis. No effusion or pneumothorax. Roberto Alcala MD Course She underwent PCI on 05/24/17 and her creatinine has increased to ~2. She will need a TAVR CTA when her creatinine returns to baseline. Assessment and Plan Problem List: (1) Aortic valve stenosis, severe ICD Codes: I35.0 - Nonrheumatic aortic (valve) stenosis Status: Acute (2) NSTEMI (non-ST elevated myocardial infarction) ICD Codes: I21.4 - Non-ST elevation (NSTEMI) myocardial infarction Status: Acute (3) CKD (chronic kidney disease), stage III ICD Codes: N18.3 - Chronic kidney disease, stage 3 (moderate) Status: Chronic (4) CAD (coronary artery disease) ICD Codes: I25.10 - Atherosclerotic heart disease of [place] coronary artery without angina pectoris Status: Acute (5) CHF (congestive heart failure) ICD Codes: I50.9 - Heart failure, unspecified Status: Acute Assessment and Plan 76 y/o female presents with NSTEMI and severe aortic stenosis. She is s/p PCI and stent placement to the RCA. She likely has some contrast nephropathy currently. She has been objectively tested for frailty and is 2/4 frail. Her STS risk for surgery is ~7-7% mortality. I do not recommend open AVR due to her advanced age, frailty, and overall STS risk. I would consider her for TAVR once her renal function improves and the flu is resolved. Problem Qualifiers (1) CAD (coronary artery disease): Qualified Codes: I25.110 - Atherosclerotic heart disease of [place] coronary artery with unstable angina pectoris (2) CHF (congestive heart failure): Qualified Codes: I50.33 - Acute on chronic diastolic (congestive) heart failure Lola Condon MD May 25, 2017 10:27
[2017-05-25 11:35] LABS: FERRITIN 847 NG/ML (8-252); TRANSFERRIN IRON PROFILE 141 MG/DL (200-360)
--- NOTE | 2017-05-25 13:10 | HHI.PR ---
Subjective Remarks Mrs. Vazquez states she feels well today. Decreased appetite but she is eating. Denies shortness of breath or chest pain. Still has cough productive of slightly yellow sputum. Objective Vitals Vital Signs Date Time Temp Pulse Resp B/P (MAP) Pulse Ox O2 Delivery O2 Flow Rate FiO2 05/25/17 13:01 68 05/25/17 12:27 76 05/25/17 11:31 74 05/25/17 11:31 98.6 75 18 122/55 (77) 95 05/25/17 11:31 95 Room Air 05/25/17 10:44 95 21 05/25/17 10:14 74 05/25/17 09:50 60 05/25/17 08:00 98.6 100 20 135/63 (87) 95 05/25/17 08:00 96 05/25/17 08:00 95 Room Air 05/25/17 06:00 94 05/25/17 05:00 94 05/25/17 04:00 98.8 92 20 143/58 (86) 95 05/25/17 04:00 83 05/25/17 03:00 82 05/25/17 02:00 74 05/25/17 01:00 78 05/25/17 00:00 72 05/25/17 00:00 98.9 96 20 158/68 (98) 98 05/24/17 23:00 86 05/24/17 22:00 82 05/24/17 21:00 86 05/24/17 20:00 98.3 80 18 137/70 (92) 96 05/24/17 20:00 72 05/24/17 20:00 96 Nasal Cannula 2.00 05/24/17 19:56 97 05/24/17 19:00 74 05/24/17 18:00 76 05/24/17 17:00 64 05/24/17 16:00 66 05/24/17 15:15 98.4 67 18 130/59 (82) 97 05/24/17 15:00 62 05/24/17 14:00 70 I/O 05/24/17 05/24/17 05/24/17 05/25/17 05/25/17 05/25/17 07:00 15:00 23:00 07:00 15:00 23:00 Intake Total 360 ml 960 ml 480 ml 300 ml Balance 360 ml 960 ml 480 ml 300 ml Intake Oral 360 ml 960 ml 480 ml IV Total 300 ml # Voids 3 5 2 # Bowel Movements 0 1 0 Result Diagram: 05/25/1755305/25/17553 Objective Remarks GENERAL: Well-nourished, well-developed very pleasant elderly female patient. SKIN: Warm and dry. HEAD: Normocephalic. EYES: No scleral icterus. No injection or drainage. NECK: Supple, trachea midline. No JVD or lymphadenopathy. CARDIOVASCULAR: Regular rate and rhythm. 2/6 systolic murmur at left sternal border. RESPIRATORY: Breath sounds equal bilaterally. No accessory muscle use. GASTROINTESTINAL: Abdomen soft, non-tender, nondistended. EXTREMITIES: No cyanosis, or edema. NEUROLOGICAL: Awake, alert, and oriented x 3. Non-focal. A/P Problem List: (1) Aortic valve stenosis, severe ICD Code: I35.0 - Nonrheumatic aortic (valve) stenosis Status: Acute (2) NSTEMI (non-ST elevated myocardial infarction) ICD Code: I21.4 - Non-ST elevation (NSTEMI) myocardial infarction Status: Acute (3) CAD (coronary artery disease) ICD Code: I25.10 - Atherosclerotic heart disease of [place] coronary artery without angina pectoris Status: Acute (4) Influenza ICD Code: J11.1 - Influenza due to unidentified influenza virus with other respiratory manifestations Status: Acute (5) MONISHA (acute kidney injury) ICD Code: N17.9 - Acute kidney failure, unspecified (6) CKD (chronic kidney disease), stage III ICD Code: N18.3 - Chronic kidney disease, stage 3 (moderate) Status: Chronic Assessment and Plan -Coronary artery disease/NSTEMI-status post left heart catheterization on May 23 with placement of a drug-eluting stent to the mid RCA by Dr. Alcala. EF was normal. Continue aspirin and Plavix. Metoprolol. Lipitor. -Severe and symptomatic aortic stenosis valve surface 0.53 with gradient 0.67 along with Trace MR and trace TR, moderate AR showing on 2-D echo, EF 55-60%, CT surgery has been consulted and is evaluating for valve replacement. -Positive influenza A - doing well. Continue Tamiflu through May 28. Chest x-ray was negative for pneumonia. -MONISHA on Chronic kidney disease stable 3 - creatinine did increase to 2 overnight. We'll continue normal saline and repeat BMP in the morning. -Hypertension - continue metoprolol. -Hypothyroidism - continue Synthroid -Early dementia. Continue Aricept. DVT prophylaxis - SCDs. Problem Qualifiers (1) CAD (coronary artery disease): Qualified Codes: I25.110 - Atherosclerotic heart disease of [place] coronary artery with unstable angina pectoris Maria T Lanier MD May 25, 2017 13:10
[2017-05-25] MEDS: FAMOTIDINE 20 MG TAB PO SCH (21:32)
[2017-05-25] MEDS: DONEPEZIL HCL 5 MG TAB PO SCH (21:32)
[2017-05-25] MEDS: ATORVASTATIN 80 MG TAB PO SCH (21:32)
[2017-05-26] VITALS (25 sets, daily range): BP systolic 114–148; BP diastolic 53–68; PULSE 65–106; RESP 14–18; TEMP 98.2–98.8; O2SAT 95–98
[2017-05-26] MEDS: RESP: ALBUTEROL 2.5 MG/IPRATROPIUM 0.5 MG NEB (SCH) NEB ×4 (03:35→22:05)
[2017-05-26] MEDS: LEVOTHYROXINE SODIUM 25 MCG TAB PO SCH (05:02)
[2017-05-26 06:12] LABS: AUTOMATED NEUTROPHIL # 2.6 TH/MM3 (1.8-7.7); BASOPHIL % 0.3 % (0.0-2.0); EOSINOPHIL % 0.8 % (0.0-4.0); HEMATOCRIT 27.4 % (35.0-46.0); HEMO FLAGS DIFF FINAL; LYMPH % 18.2 % (9.0-44.0); LYMPHOCYTE # 0.8 TH/MM3 (1.0-4.8); MEAN CELL VOLUME 91.5 FL (80.0-100.0); MEAN CORPUSCULAR HEMOGLOBIN 30.8 PG (27.0-34.0); MEAN CORPUSCULAR HGB CONC 33.6 % (32.0-36.0); MONO % 18.8 % (0.0-8.0); NEUT % 61.9 % (16.0-70.0); PLATELET COUNT 136 TH/MM3 (150-450); RED BLOOD COUNT 2.99 MIL/MM3 (4.00-5.30); RED CELL DISTRIBUTION WIDTH 15.5 % (11.6-17.2); WHITE BLOOD COUNT 4.3 TH/MM3 (4.0-11.0)
[2017-05-26 06:34] LABS: BICARBONATE 22.4 MEQ/L (21.0-32.0); POTASSIUM 3.9 MEQ/L (3.5-5.1)
[2017-05-26] MEDS: SODIUM CHLOR 0.9% 1000 ML INJ 1,000 ML IV SCH ×2 (07:59→20:14)
[2017-05-26] MEDS: CLOPIDOGREL 75 MG TAB PO SCH (08:33)
[2017-05-26] MEDS: PANTOPRAZOLE SOD 20 MG DELAYED RELEASE TAB PO SCH (08:33)
[2017-05-26] MEDS: POTASSIUM CHLORIDE 10 MEQ CONTROLLED RELEASE TAB PO SCH ×2 (08:33→20:13)
[2017-05-26] MEDS: OSELTAMIVIR PHOSPHATE 75 MG CAP PO SCH (08:33)
[2017-05-26] MEDS: ASPIRIN 81 MG CHEW TAB PO SCH (08:33)
[2017-05-26] MEDS: SODIUM CHLORIDE 0.9% FLUSH 10 ML FLUSH IV FLUSH SCH ×2 (08:33→20:13)
[2017-05-26] MEDS: METOPROLOL TARTRATE 100 MG TAB PO SCH (08:33)
[2017-05-26] MEDS: FERROUS SULFATE 325 MG (65 MG ELEMENTAL IRON) TAB PO SCH ×2 (12:21→17:59)
[2017-05-26] MEDS ORDERED: ONDANSETRON HCL 4 MG/2 ML VIAL IV PUSH PRN (12:30)
[2017-05-26] MEDS ORDERED: ONDANSETRON HCL 4 MG/2 ML VIAL IV PUSH ONE (12:30)
--- NOTE | 2017-05-26 12:41 | HHI.PR ---
Subjective Remarks Patient complains of nausea after lunch. No vomiting. Mildly dyspneic similar to yesterday. Patient states she has been having ongoing nausea and early satiety at home and was referred to GI doctor for this and has upcoming appointment. She states she had a negative colonoscopy one year ago. Objective Vitals Vital Signs Date Time Temp Pulse Resp B/P (MAP) Pulse Ox O2 Delivery O2 Flow Rate FiO2 05/26/17 12:02 82 05/26/17 11:13 98 Room Air 05/26/17 11:13 69 05/26/17 11:13 98.7 69 18 126/55 (78) 98 05/26/17 10:10 96 21 05/26/17 10:01 65 05/26/17 09:03 75 05/26/17 08:45 98 Room Air 05/26/17 08:45 98.6 81 18 148/62 (90) 98 05/26/17 08:45 94 05/26/17 06:00 96 05/26/17 05:00 106 05/26/17 04:00 98.8 90 14 127/60 (82) 95 05/26/17 04:00 87 05/26/17 04:00 Room Air 05/26/17 03:00 100 05/26/17 02:00 82 05/26/17 01:00 82 05/26/17 00:00 82 05/26/17 00:00 98.4 90 14 127/68 (87) 96 05/26/17 00:00 Room Air 05/25/17 23:00 102 05/25/17 22:00 92 05/25/17 21:00 78 05/25/17 20:59 98 21 05/25/17 20:00 98.9 89 14 131/57 (81) 97 05/25/17 20:00 Room Air 05/25/17 20:00 82 05/25/17 18:02 89 05/25/17 17:42 88 05/25/17 16:01 78 05/25/17 15:04 99 Room Air 05/25/17 15:04 98.0 73 18 125/50 (75) 99 05/25/17 15:04 76 05/25/17 14:08 86 05/25/17 13:01 68 I/O 12/16/17 12/16/05/25/17 05/26/17 05/26/17 05/26/17 07:00 15:00 23:00 07:00 15:00 23:00 Intake Total 480 ml 926 ml 600 ml 480 ml Output Total 400 ml 350 ml Balance 480 ml 926 ml 200 ml 130 ml Intake Oral 480 ml 600 ml 480 ml IV Total 926 ml Output Urine Total 400 ml 350 ml # Voids 2 1 # Bowel Movements 0 0 Result Diagram: 05/26/1751805/26/17518 Objective Remarks GENERAL: Well-nourished, well-developed very pleasant elderly female patient. SKIN: Warm and dry. HEAD: Normocephalic. EYES: No scleral icterus. No injection or drainage. NECK: Supple, trachea midline. No JVD or lymphadenopathy. CARDIOVASCULAR: Regular rate and rhythm. 2/6 systolic murmur at left sternal border. RESPIRATORY: Breath sounds equal bilaterally. No accessory muscle use. GASTROINTESTINAL: Abdomen soft, non-tender, nondistended. EXTREMITIES: No cyanosis, or edema. NEUROLOGICAL: Awake, alert, and oriented x 3. Non-focal. A/P Problem List: (1) Aortic valve stenosis, severe ICD Code: I35.0 - Nonrheumatic aortic (valve) stenosis Status: Acute (2) NSTEMI (non-ST elevated myocardial infarction) ICD Code: I21.4 - Non-ST elevation (NSTEMI) myocardial infarction Status: Acute (3) CAD (coronary artery disease) ICD Code: I25.10 - Atherosclerotic heart disease of [place] coronary artery without angina pectoris Status: Acute (4) Influenza ICD Code: J11.1 - Influenza due to unidentified influenza virus with other respiratory manifestations Status: Acute (5) MONISHA (acute kidney injury) ICD Code: N17.9 - Acute kidney failure, unspecified (6) CKD (chronic kidney disease), stage III ICD Code: N18.3 - Chronic kidney disease, stage 3 (moderate) Status: Chronic Assessment and Plan -Coronary artery disease/NSTEMI-status post left heart catheterization on May 23 with placement of a drug-eluting stent to the mid RCA by Dr. Alcala. EF was normal. Continue aspirin and Plavix. Metoprolol. Lipitor. -Severe and symptomatic aortic stenosis valve surface 0.53 with gradient 0.67 along with Trace MR and trace TR, moderate AR showing on 2-D echo, EF 55-60%, CT surgery has been consulted and is evaluating for valve replacement. -Positive influenza A - doing well. Continue Tamiflu through May 28. Chest x-ray was negative for pneumonia. -MONISHA on Chronic kidney disease stable 3 -improving creatinine slightly down trended today. We'll continue normal saline and repeat BMP in the morning. -Hypertension - continue metoprolol. -Chronic anemia. Negative colonoscopy one year ago. Hemoglobin stable. -Nausea and early satiety. Zofran as needed. Patient has outpatient referral to gastroenterology. -Hypothyroidism - continue Synthroid -Early dementia. Continue Aricept. DVT prophylaxis - SCDs. Discharge Planning Pending CVT eval for valve Problem Qualifiers (1) CAD (coronary artery disease): Qualified Codes: I25.110 - Atherosclerotic heart disease of [place] coronary artery with unstable angina pectoris Maria T Lanier MD May 26, 2017 12:41
[2017-05-26] MEDS: FAMOTIDINE 20 MG TAB PO SCH (20:13)
[2017-05-26] MEDS: DONEPEZIL HCL 5 MG TAB PO SCH (20:13)
[2017-05-26] MEDS: ATORVASTATIN 80 MG TAB PO SCH (20:13)
[2017-05-27] VITALS (11 sets, daily range): BP systolic 130–149; BP diastolic 59–67; PULSE 69–106; RESP 16–18; TEMP 98.4–98.9; O2SAT 96–97
[2017-05-27] MEDS: LEVOTHYROXINE SODIUM 25 MCG TAB PO SCH (05:26)
[2017-05-27 06:54] LABS: AUTOMATED NEUTROPHIL # 2.6 TH/MM3 (1.8-7.7); BASOPHIL % 0.3 % (0.0-2.0); EOSINOPHIL # 0.1 TH/MM3 (0-0.4); EOSINOPHIL % 2.2 % (0.0-4.0); HEMATOCRIT 28.5 % (35.0-46.0); HEMO FLAGS DIFF FINAL; LYMPH % 21.1 % (9.0-44.0); LYMPHOCYTE # 0.9 TH/MM3 (1.0-4.8); MEAN CELL VOLUME 91.6 FL (80.0-100.0); MEAN CORPUSCULAR HEMOGLOBIN 30.6 PG (27.0-34.0); MEAN CORPUSCULAR HGB CONC 33.4 % (32.0-36.0); MONO % 18.6 % (0.0-8.0); NEUT % 57.8 % (16.0-70.0); PLATELET COUNT 140 TH/MM3 (150-450); RED BLOOD COUNT 3.11 MIL/MM3 (4.00-5.30); RED CELL DISTRIBUTION WIDTH 15.5 % (11.6-17.2); WHITE BLOOD COUNT 4.4 TH/MM3 (4.0-11.0)
[2017-05-27 07:11] LABS: BICARBONATE 24.6 MEQ/L (21.0-32.0); POTASSIUM 4.5 MEQ/L (3.5-5.1)
[2017-05-27] MEDS: SODIUM CHLORIDE 0.9% FLUSH 10 ML FLUSH IV FLUSH SCH (09:00)
[2017-05-27] MEDS ORDERED: ASPI81 PO (10:19)
[2017-05-27] MEDS ORDERED: ATOR80TA45 PO (10:19)
[2017-05-27] MEDS ORDERED: PLAV75TA29 PO (10:19)
[2017-05-27] MEDS ORDERED: FURO40TA PO (10:19)
[2017-05-27] MEDS ORDERED: FERR325T20 PO (10:19)
--- NOTE | 2017-05-27 10:21 | HHI.FF ---
Face to Face Verification Diagnosis: (1) Aortic valve stenosis, severe (2) NSTEMI (non-ST elevated myocardial infarction) (3) CKD (chronic kidney disease), stage III Physical Therapy Order: Evaluate and Treat Home Health Nursing Order: Medical education Nursing assessment with vital signs I have seen patient Lili Vazquez on 05/27/17. My clinical findings support the need for the requested home health care services because: Deconditioned w/ increased weakness Need for psychosocial assistance I certify that my clinical findings support that this patient is homebound because: Unsteady gait/balance Need for psychosocial assistance Maria T Lanier MD May 27, 2017 10:21
[2017-05-27] MEDS: POTASSIUM CHLORIDE 10 MEQ CONTROLLED RELEASE TAB PO SCH (10:41)
[2017-05-27] MEDS: CLOPIDOGREL 75 MG TAB PO SCH (10:41)
[2017-05-27] MEDS: OSELTAMIVIR PHOSPHATE 75 MG CAP PO SCH (10:42)
[2017-05-27] MEDS: PANTOPRAZOLE SOD 20 MG DELAYED RELEASE TAB PO SCH (10:42)
[2017-05-27] MEDS: FERROUS SULFATE 325 MG (65 MG ELEMENTAL IRON) TAB PO SCH (10:42)
[2017-05-27] MEDS: ASPIRIN 81 MG CHEW TAB PO SCH (10:42)
[2017-05-27] MEDS: METOPROLOL TARTRATE 100 MG TAB PO SCH (10:42)
[2017-05-27] MEDS ORDERED: BENZ100 PO (10:45)
--- NOTE | 2017-05-27 10:45 | HHI.DS ---
Discharge Summary Admission Date May 22, 2017 at 21:25 Discharge Date: May 27, 2017 Admitting Diagnosis acute CHF exacerbation, influenza (1) Aortic valve stenosis, severe ICD Code: I35.0 - Nonrheumatic aortic (valve) stenosis Status: Acute (2) NSTEMI (non-ST elevated myocardial infarction) ICD Code: I21.4 - Non-ST elevation (NSTEMI) myocardial infarction Status: Acute (3) CAD (coronary artery disease) ICD Code: I25.10 - Atherosclerotic heart disease of [place] coronary artery without angina pectoris Status: Acute (4) Influenza ICD Code: J11.1 - Influenza due to unidentified influenza virus with other respiratory manifestations Status: Acute (5) MONISHA (acute kidney injury) ICD Code: N17.9 - Acute kidney failure, unspecified (6) CKD (chronic kidney disease), stage III ICD Code: N18.3 - Chronic kidney disease, stage 3 (moderate) Status: Chronic Procedures [facility] Brief History - From Admission 76-year-old female with a past medical history significant for hypertension, hyperlipidemia, hypothyroidism and history of breast cancer now in remission presents to the emergency department with a 2 day history of cough productive of clear sputum with increasing shortness of breath. Reports that she began wheezing yesterday. She states she's had nausea and vomiting and also began yesterday. She has no history of coronary artery disease or CHF. She does have a history of bilateral lower extremity edema that has been worsening over the past year. She is influenza A positive. Chest x-ray without consolidation although does appear minimally wet. BNP 1226. CBC/BMP: 05/27/17 0542 05/27/17 0512 Significant Findings Laboratory Tests Test 05/25/17 05:54 05/26/17 05:19 05/27/17 05:12 05/27/17 05:42 White Blood Count 3.8 TH/MM3 (4.0-11.0) Red Blood Count 3.20 MIL/MM3 (4.00-5.30) 2.99 MIL/MM3 (4.00-5.30) 3.11 MIL/MM3 (4.00-5.30) Hemoglobin 9.7 GM/DL (11.6-15.3) 9.2 GM/DL (11.6-15.3) 9.5 GM/DL (11.6-15.3) Hematocrit 29.6 % (35.0-46.0) 27.4 % (35.0-46.0) 28.5 % (35.0-46.0) Platelet Count 140 TH/MM3 (150-450) 136 TH/MM3 (150-450) 140 TH/MM3 (150-450) Monocytes (%) (Auto) 19.2 % (0.0-8.0) 18.8 % (0.0-8.0) 18.6 % (0.0-8.0) Lymphocytes # (Auto) 0.6 TH/MM3 (1.0-4.8) 0.8 TH/MM3 (1.0-4.8) 0.9 TH/MM3 (1.0-4.8) Blood Urea Nitrogen 42 MG/DL (7-18) 39 MG/DL (7-18) 24 MG/DL (7-18) Creatinine 2.02 MG/DL (0.50-1.00) 1.66 MG/DL (0.50-1.00) 1.24 MG/DL (0.50-1.00) Random Glucose 110 MG/DL (74-106) Calcium Level 7.8 MG/DL (8.5-10.1) 8.2 MG/DL (8.5-10.1) 8.3 MG/DL (8.5-10.1) Estimat Glomerular Filtration Rate 29 ML/MIN (>89) 36 ML/MIN (>89) 51 ML/MIN (>89) Iron Level 26 MCG/DL (50-170) Total Iron Binding Capacity 197 MCG/DL (250-450) Percent Iron Saturation 13.2 % (20-50) Ferritin 847 NG/ML (8-252) Folate 19.4 NG/ML (3.1-17.5) Chloride Level 110 MEQ/L (98-107) 114 MEQ/L (98-107) Imaging Last Impressions Chest X-Ray 05/22/17 3410 Signed Impressions: Service Date/Time: Monday, May 22, 2017 19:18 - CONCLUSION: 1. Probable dependent atelectasis. No effusion or pneumothorax. Roberto Alcala MD PE at Discharge GENERAL: Well-nourished, well-developed very pleasant elderly female patient. SKIN: Warm and dry. HEAD: Normocephalic. EYES: No scleral icterus. No injection or drainage. NECK: Supple, trachea midline. No JVD or lymphadenopathy. CARDIOVASCULAR: Regular rate and rhythm. 2/6 systolic murmur at left sternal border. RESPIRATORY: Breath sounds equal bilaterally. No accessory muscle use. GASTROINTESTINAL: Abdomen soft, non-tender, nondistended. EXTREMITIES: 1+ pedal edema. NEUROLOGICAL: Awake, alert, and oriented x 3. Non-focal. Hospital Course -Coronary artery disease/NSTEMI-status post left heart catheterization on May 23 with placement of a drug-eluting stent to the mid RCA by Dr. Alcala. EF was normal. Continue aspirin and Plavix. Metoprolol. Lipitor. -Severe and symptomatic aortic stenosis valve surface 0.53 with gradient 0.67 along with Trace MR and trace TR, moderate AR showing on 2-D echo, EF 55-60%, CT surgery has been consulted and is evaluating for valve replacement. I discussed with Dr. Condon today - this will be scheduled from his office after discharge. -Positive influenza A - doing well. Continue Tamiflu through May 28. Chest x-ray was negative for pneumonia. -MONISHA on Chronic kidney disease stable 3 -improving creatinine 1.29 today. -Hypertension - continue metoprolol. -Chronic anemia. Negative colonoscopy one year ago. Hemoglobin stable. Fe low , started on FESO4. -Nausea and early satiety. Zofran as needed. Patient has outpatient referral to gastroenterology. -Hypothyroidism - continue Synthroid -Early dementia. Continue Aricept. DC home today. F/u with cardiology and CT surgery. [facility] arranged. Pt Condition on Discharge: Stable Discharge Disposition: Disch w/ Home Health Serv Discharge Time: > 30 minutes Discharge Instructions DIET: Follow Instructions for: Heart Healthy Diet Activities you can perform: Regular-No Restrictions Follow up Referrals: Cardiology - 2 Weeks with Luis Ansari MD PCP Follow-up - 1 Week Vascular Surgery - 3-5 Days with Lola Condon MD New Medications: Benzonatate (Tessalon Perles) 100 Mg Cap 100 MG PO TID PRN for COUGH, #60 CAP 0 Refills Aspirin (Tgt Aspirin) 81 Mg Chw 81 MG PO DAILY for prevent heart attack, #30 EA Clopidogrel (Plavix) 75 Mg Tab 75 MG PO DAILY for prevent heart attack, #30 TAB Ferrous Sulfate (Ferosul) 325 Mg (65 Mg Iron) Tablet 325 MG PO BID@12,17 for anemia, #60 TAB Oseltamivir (Tamiflu) 75 Mg Cap 75 MG PO DAILY for Infection, #3 CAP Changed Medications: Furosemide (Furosemide) 40 Mg Tab 40 MG PO DAILY for swelling, #30 TAB 0 Refills (Changed from: BID; 60) Continued Medications: Allopurinol (Allopurinol) 100 Mg Tab 200 MG PO DAILY for Gout, #30 TAB 0 Refills Atorvastatin (Atorvastatin) 80 Mg Tab 80 MG PO HS for Cholesterol Management, #30 TAB 0 Refills (This prescription has been renewed) Cholecalciferol (Vitamin D3) 5,000 Unit Cap 5000 UNITS PO DAILY for Nutritional Supplement, #30 CAP 0 Refills Donepezil (Donepezil) 5 Mg Tab 5 MG PO HS for Dementia, #30 TAB 0 Refills Levothyroxine (Levothyroxine) 25 Mcg Tab 25 MCG PO DAILY for Thyroid, #30 TAB 0 Refills Lisinopril (Lisinopril) 40 Mg Tab 40 MG PO DAILY for Blood Pressure Management, #30 TAB 0 Refills Metoprolol Tartrate (Metoprolol Tartrate) 100 Mg Tab 100 MG PO DAILY, #30 TAB 0 Refills Omeprazole (Omeprazole) 20 Mg Tab 20 MG PO DAILY, #30 TAB 0 Refills Potassium Chloride ER (Potassium Chloride ER) 10 Meq Cap 10 MEQ PO BID for Electrolyte Replacement, #60 CAP 0 Refills Ranitidine (Ranitidine) 300 Mg Cap 300 MG PO HS, CAP 0 Refills Discontinued Medications: Hydrochlorothiazide (Hydrochlorothiazide) 25 Mg Tab 25 MG PO DAILY, #30 TAB 0 Refills Maria T Lanier MD May 27, 2017 10:45
[2017-05-27] MEDS: RESP: ALBUTEROL 2.5 MG/IPRATROPIUM 0.5 MG NEB (PRN) NEB (11:23)
[2017-05-27] MEDS ORDERED: OSEL75 PO (12:35)
--- NOTE | 2017-06-04 10:27 | RSPPFT ---
DATE OF PROCEDURE: 05/24/17 COMMENTS: Spirometry demonstrates an FEV1 of 0.8 at 46% of predicted, FVC of 1.1 at 44%, FEF 25-75 at 43%. Post-bronchodilator study was not conducted. Lung volumes were not completed. Flow volume loops are suggestive of a restrictive pattern. IMPRESSION: 1. Moderate restrictive disease. 2. Additional moderately severe obstructive disease.
== END 2017-05-27 13:21 | disposition home health service (06) | DRG 246 ==
LOC: NEPC 18:41 → NEDA 21:11 → OBSVTOIN 21:25 → NEPGCP 23:39 → HCIS 05-23 16:58
PROVIDERS: ADMIT Family Medicine; ATTEND Family Medicine
PROC: B2111ZZ Fluoroscopy of Multiple Coronary Arteries using Low Osmolar Contrast (ICD-10-PCS; 2017-05-23)
PROC: 4A023N7 Measurement of Cardiac Sampling and Pressure, Left Heart, Percutaneous Approach (ICD-10-PCS; 2017-05-23)
PROC: 027034Z Dilation of Coronary Artery, One Artery with Drug-eluting Intraluminal Device, Percutaneous Approach (ICD-10-PCS; principal; 2017-05-23 14:45)
DX: I21.4 Non-ST elevation (NSTEMI) myocardial infarction (principal); I50.31 Acute diastolic (congestive) heart failure; N17.9 Acute kidney failure, unspecified; I13.0 Hypertensive heart and chronic kidney disease with heart failure and stage 1 through stage 4 chronic kidney disease, or unspecified chronic kidney disease; Z68.42 Body mass index [BMI] 45.0-49.9, adult; I35.2 Nonrheumatic aortic (valve) stenosis with insufficiency; N18.3 Chronic kidney disease, stage 3 (moderate); I25.10 Atherosclerotic heart disease of native coronary artery without angina pectoris; J10.1 Influenza due to other identified influenza virus with other respiratory manifestations; D64.9 Anemia, unspecified; R68.81 Early satiety; R11.2 Nausea with vomiting, unspecified; F03.90 Unspecified dementia, unspecified severity, without behavioral disturbance, psychotic disturbance, mood disturbance, and anxiety; E66.9 Obesity, unspecified; E78.5 Hyperlipidemia, unspecified; E03.9 Hypothyroidism, unspecified; Z96.653 Presence of artificial knee joint, bilateral; Z87.891 Personal history of nicotine dependence; Z82.49 Family history of ischemic heart disease and other diseases of the circulatory system; Z85.3 Personal history of malignant neoplasm of breast; Z90.12 Acquired absence of left breast and nipple; Z92.3 Personal history of irradiation; Z92.21 Personal history of antineoplastic chemotherapy
CPT/HCPCS: 71010; 76937; 80048; 80053; 82550; 82552; 82607; 82728; 82746; 83540; 83550; 83690; 83735; 83880; 84100; 84484; 85025; 85610; 85730; 86850; 86900; 86901; 87804; 90686; 90732; 92928; 93005; 93306; 93458; 94010; 94640; 94664; 96372; 96374; 99152; 99153; C1769; C1874; C1887; C1893; G8987-GP; G8988-GP; J0360; J1644; J1940; J2250; J2405; J3010; J7030; Q2038; Q9967

== ENCOUNTER → 2017-06-24 | Outpatient (CLI) | payer OTHER ==
[~2017-06-24] MED LIST changes: +ALLO100T PO; +ASPI81 PO; +ATOR80TA45 PO; +BENZ100 PO; -BRIM.2%O EACH EYE; +CHOL5000 PO; +DONE5TAB7 PO; -DORZ1SOL2 EACH EYE; -DULO1CAP PO; +FERR325T20 PO; -FURO1TAB93 PO; +FURO40TA PO; -GABA300C3 PO; +IOHEXOL 350 MG/ML 10 ML VIAL (for RAD DIAG) IVCONTRAST ONE; -LATA.005%O EACH EYE; +LEVO25TA4 PO; +OMEP20TA93 PO; +OSEL75 PO; +PLAV75TA29 PO; -POTA-243 PO; +POTA10CA PO; +RANI300C PO
--- NOTE | 2017-06-24 12:41 | RADRPT ---
EXAM DATE/TIME: 06/24/2017 12:14 [facility] COMPARISON: No previous studies available for comparison. INDICATIONS : Patient for Cat scan. Needs good IV for exam. MEDICAL HISTORY : 1.HTN 2. Hyperlipidemia 3. Hypothyroidism 4. Lt breast cancer 5. CAD 6. Aortic stenosis SURGICAL HISTORY : 1. Left masectomy 2. bilateral knee replacments 3. Heart cath with stent placment ENCOUNTER: Initial ACUITY: 1 day PAIN SCORE: 0/10 IMAGE SERIES: ACCESS: Right brachial vein DEVICE(S): 1.) 3/4 [place]is[place] Dilator PROCEDURE : 1. Ultrasound guided venous access. The risks, benefits and alternatives to the procedure were explained and verbal and written consent w as obtained. The site was prepped in sterile fashion. Full sterile technique was used, including ca p, mask, sterile gloves and gown and a large sterile sheet. Hand hygiene and 2% chlorhexidine and/or betadine/alcohol prep was utilized per protocol for cutaneous antisepsis. Sterile gel and sterile p robe cover were utilized for ultrasound guidance. The skin and subcutaneous tissues were infiltrate d with local anesthetic solution. With ultrasound guidance the prescribed vein was punctured for venous access. A 4 Wallisian dilator was placed and was flushed and locked with heparin. The patient tolerated procedure well and there were n o complications. CONCLUSION: Uncomplicated ultrasound guided venous access. Hakan Aguirre MD on June 24, 2017 at 12:38 Board Certified Radiologist. This report was verified electronically.
--- NOTE | 2017-06-24 15:44 | RADRPT ---
EXAM DATE/TIME: 06/24/2017 13:58 [facility] COMPARISON: No previous studies available for comparison. INDICATIONS : Patient with history of aortic stenosis in need of PICC line placement. MEDICAL HISTORY : HTN, HLD, Hypothyroidism, Left breast cancer, CAD, Aortic stenosis SURGICAL HISTORY : Left mastectomy, Bilateral knee replacement, Drug-eluting stent right coronary artery ENCOUNTER: Initial ACUITY: 1 day PAIN SCORE: 0/10 FLUORO TIME: 0.6 minutes IMAGE SERIES: 1 ACCESS: Right brachial vein MEDICATION(S): 1.) 200 units Heparin IV DEVICE(S): 1.) 4 Slovak single lumen 45 cm Xcela Power PICC PROCEDURE : 1. Ultrasound guidance for venous catheterization. 2. Fluoroscopic guidance. 3. Ultrasound & fluoroscopic guided central venous Power PICC line placement. The risks, benefits and alternatives to the procedure were explained and verbal and written consent w as obtained. The site was prepped in sterile fashion. Full sterile technique was used, including ca p, mask, sterile gloves and gown and a large sterile sheet. Hand hygiene and 2% chlorhexidine prep w as utilized per protocol for cutaneous antisepsis with appropriate dry time for site. Sterile gel a nd sterile probe cover were utilized for ultrasound guidance. The skin and subcutaneous tissues wer e infiltrated with local anesthetic solution. Under direct ultrasound guidance, a suitable vein was accessed and a measuring guidewire was introduc ed and positioned in the central venous system. The ultrasound images depicting access guidance were saved and stored to PACS for permanent record. A Power Injectable PICC line was cut to prescribed length and introduced, positioned with tip at the cavoatrial junction level. The line was flushed and secured per protocol. CONCLUSION: 1. Uncomplicated central venous Power PICC line placement. 2. The PICC line can be used immediately. Kee Soto MD on June 24, 2017 at 13:17 Board Certified Radiologist. This report was verified electronically.
--- NOTE | 2017-06-24 16:11 | RADRPT ---
EXAM DATE/TIME: 06/24/2017 13:12 [facility] COMPARISON: CT SIMULATION, May 27, 2014, 10:45. INDICATIONS : Heart valve replacement IV CONTRAST: 98 cc Omnipaque 350 (iohexol) IV RADIATION DOSE: 38.98 CTDIvol (mGy) MEDICAL HISTORY : Hypertension. Renal insufficiency. SURGICAL HISTORY : cardiac catheterization ENCOUNTER: Initial ACUITY: 1 month PAIN SCALE: 0/10 LOCATION: chest TECHNIQUE: Volumetric scanning was performed using a multi-row detector CT scanner. The data was post processed with a variety of visualization algorithms including full volume maximum intensity projection, multi -planar sliding thin slab reformation, curved planar reformation, and surface rendering techniques. Using automated exposure control and adjustment of the mA and/or kV according to patient size, radiat ion dose was kept as low as reasonably achievable to obtain optimal diagnostic quality images. DIC OM format image data is available electronically for review and comparison. FINDINGS: CARDIAC: The coronary system is right dominant. There is been previous stenting of the right coronary. I do no t definitely see flow distal to the stent. The examination was not tailored to evaluate the coronary circulation. AORTIC ROOT/VALVE: The aortic valve is tricuspid. There is extensive calcification of all 3 valvular cause. There is min imal calcification of the aortic annulus. The aortic root measures 2.5 cm.. The tubular portion of the ascending aorta measures 2.9 cm. There is no significant atherosclero tic plaquing within the ascending aorta. THORACIC AORTA: There is normal anatomic branching of the great vessels from the arch. The aortic arch is normal in c aliber with a maximum dimension of approximately 2.5 cm. There is only minimal scattered calcified at herosclerotic plaque. The descending thoracic aorta is normal in caliber throughout its course measur ing approximately 2 cm in maximum dimension. There is only minimal calcified atherosclerotic plaque e vident. No significant soft plaquing is identified. ABDOMINAL AORTA: The celiac and SMA origins are widely patent. There are single renal arteries bilaterally. The renal arteries are widely patent. The infrarenal aorta is normal in caliber. Maximum dimension of the infra renal aorta is approximately 1.7 cm per CELIAC ARTERY: Celiac artery is widely patent. SMA: Superior mesenteric artery is widely patent. RIGHT RENAL ARTERY: Right renal artery is widely patent. LEFT RENAL ARTERY: Left renal artery is widely patent. RIGHT COMMON ILIAC: There is minimal calcified atherosclerotic plaque. The right common iliac measures 8.7 mm in maximum dimension. LEFT COMMON ILIAC: There is minimal calcified atherosclerotic plaque. The left common iliac measures 1 cm in maximum dim ension. External Iliac/Common Femoral: The external iliac circulation is widely patent bilaterally. The common femoral arteries are widely p atent bilaterally. The right common femoral measures 6.4 mm in size. The left common femoral measures 6.4 mm in size. THORAX: The visualized pulmonary parenchyma demonstrates mild COPD changes but is otherwise clear. The heart is enlarged. No pulmonary embolus is seen. No hilar or mediastinal adenopathy is present. ABDOMEN: The solid organs of the abdomen are grossly intact arterial phase imaging. The loops of small large b owel are unremarkable. No retroperitoneal adenopathy is seen. There are degenerative changes within t he spine. PELVIS: There is no free fluid within the pelvis. No iliac or inguinal adenopathy is present. There are scatt ered diverticuli throughout the colon. CONCLUSION: 1. Extensive atherosclerotic calcification of the aortic valve leaflets. There is a tricuspid valve. The aortic root measures 2.5 cm in dimension. There is only minimal calcified atherosclerotic plaque seen throughout the thoracic and abdominal aorta. This is described in detail above. Hakan Aguirre MD on June 24, 2017 at 15:59 Board Certified Radiologist. This report was verified electronically.
== END ==
LOC: HRAD 08:04
PROVIDERS: ATTEND Radiology Vascular & Interventional Radiology
DX: I35.0 Nonrheumatic aortic (valve) stenosis (principal)
CPT/HCPCS: 36410; 36569; 74174; 76937; 77001; C1751; C1769; C1887; J1642; Q9967

== ENCOUNTER 2017-07-24 10:09 | Day surgery (SDC) | payer OTHER, MEDICAID ==
[~2017-07-24] VITALS: Ht 170.2 cm; Wt 120.0 kg
[~2017-07-24 10:09] MED LIST changes: -IOHEXOL 350 MG/ML 10 ML VIAL (for RAD DIAG) IVCONTRAST ONE
[2017-07-24 11:10] VITALS: BP 162/62; PULSE 60; RESP 20; TEMP 98.2; O2SAT 99
[2017-07-24 11:38] LABS: AUTOMATED NEUTROPHIL # 3.6 TH/MM3 (1.8-7.7); BASOPHIL # 0.1 TH/MM3 (0-0.2); BASOPHIL % 1.1 % (0.0-2.0); EOSINOPHIL # 0.3 TH/MM3 (0-0.4); EOSINOPHIL % 5.5 % (0.0-4.0); HEMATOCRIT 30.3 % (35.0-46.0); HEMOGLOBIN 9.9 GM/DL (11.6-15.3); LYMPH % 19.9 % (9.0-44.0); LYMPHOCYTE # 1.2 TH/MM3 (1.0-4.8); MEAN CELL VOLUME 90.4 FL (80.0-100.0); MEAN CORPUSCULAR HEMOGLOBIN 29.7 PG (27.0-34.0); MEAN CORPUSCULAR HGB CONC 32.8 % (32.0-36.0); MEAN PLATELET VOLUME 7.8 FL (7.0-11.0); MONOCYTE # 0.6 TH/MM3 (0-0.9); NEUT % 62.5 % (16.0-70.0); PLATELET COUNT 218 TH/MM3 (150-450); RED BLOOD COUNT 3.35 MIL/MM3 (4.00-5.30); RED CELL DISTRIBUTION WIDTH 15.3 % (11.6-17.2); WHITE BLOOD COUNT 5.8 TH/MM3 (4.0-11.0)
[2017-07-24] MEDS ORDERED: ASPIRIN 325 MG TAB PO SCH (11:45)
[2017-07-24] MEDS ORDERED: CHLORHEXIDINE GLUCONATE 2 % 1 PACK (2 CLOTHS) TOPICAL PRN (11:45)
[2017-07-24] MEDS ORDERED: POVIDONE IODINE 5% (ANTISEPSIS KIT) EACH NARE PRN (11:45)
[2017-07-24] MEDS ORDERED: ceFAZolin 2 GM PREMIX 50 ML IV PRN (11:45)
[2017-07-24] MEDS ORDERED: MUPIROCIN 2% OINT 1 APPLIC/GM SYRINGE EACH NARE PRN (11:45)
[2017-07-24] MEDS ORDERED: SODIUM CHLOR 0.9% 1000 ML 1,000 ML IV SCH (11:45)
[2017-07-24 11:47] LABS: INTERNATIONAL NORMALIZED RATIO 1.1 RATIO; PROTHROMBIN TIME - PATIENT 10.8 SEC (9.8-11.6)
[2017-07-24 11:57] LABS: BICARBONATE 24.8 MEQ/L (21.0-32.0); CALCIUM 9.2 MG/DL (8.5-10.1); CREATININE 1.68 MG/DL (0.50-1.00)
[2017-07-24] MEDS ORDERED: HYDROCORTISONE SOD SUCCINATE 100 MG VIAL IV PUSH ONE (13:00)
[2017-07-24] MEDS ORDERED: FAMOTIDINE 20 MG/2 ML VIAL IV PUSH ONE (13:00)
[2017-07-24] MEDS ORDERED: diphenhydrAMINE HCL 50 MG/ML VIAL IV PUSH ONE (13:00)
--- NOTE | 2017-07-25 14:41 | EKG ---
Date Performed: 07/24/2017 Time Performed: 11:21:24 PTAGE: 76 years EKG: Sinus bradycardia. Normal ECG except for rate NO PREVIOUS TRACING DOCTOR: Noel Villafuerte Interpretating Date/Time 07/25/2017 14:34:16
== END 2017-07-24 14:24 | disposition home or self-care (01) ==
LOC: HSDC 10:09 → UNDOADMIN 10:09 → HDIC 10:09 → EDSTATUS 13:00 → UNDODISIN 14:24 → HSDC 14:24
PROVIDERS: ATTEND Thoracic Surgery (Cardiothoracic Vascular Surgery)
DX: I35.0 Nonrheumatic aortic (valve) stenosis (principal); I50.9 Heart failure, unspecified; Z53.9 Procedure and treatment not carried out, unspecified reason
CPT/HCPCS: 80048; 85025; 85610; 85730; 86850; 86900; 86901; 86920; 93005

== ENCOUNTER 2017-07-30 09:02 | Inpatient (IN) | payer OTHER, MEDICARE, MEDICAID ==
[~2017-07-30] VITALS: Ht 170.2 cm; Wt 120.0 kg
[2017-07-30] VITALS (7 sets, daily range): BP systolic 132–178; BP diastolic 46–89; PULSE 49–73; RESP 16–20; TEMP 97.5–98.4; O2SAT 97–100
[~2017-07-30 09:02] MED LIST changes: -BENZ100 PO; -OSEL75 PO; -RANI300C PO
[2017-07-30] MEDS ORDERED: PRED50 PO (09:22)
[2017-07-30] MEDS ORDERED: HEPARIN-NS/PF FLUSH BAG 3,000 ML IV FLUSH ONE (09:25)
[2017-07-30] MEDS ORDERED: FAMOTIDINE 20 MG/2 ML VIAL IV PUSH ONE (09:30)
[2017-07-30] MEDS ORDERED: ceFAZolin 2 GM PREMIX 50 ML IV PRN (09:30)
[2017-07-30] MEDS ORDERED: MUPIROCIN 2% OINT 1 APPLIC/GM SYR NASAL SCH (09:30)
[2017-07-30] MEDS ORDERED: HYDROCORTISONE SOD SUCCINATE 100 MG VIAL IV PUSH ONE (09:30)
[2017-07-30] MEDS ORDERED: CHLORHEXIDINE GLUCONATE 2 % 1 PACK (2 CLOTHS) TOPICAL PRN (09:30)
[2017-07-30] MEDS ORDERED: VANCOMYCIN 1000 MG/NS 250 ML IV SCH ×2 (09:30)
[2017-07-30] MEDS ORDERED: MUPIROCIN 2% OINT 1 APPLIC/GM SYRINGE EACH NARE PRN (09:30)
[2017-07-30] MEDS ORDERED: CHLORHEXIDINE GLUCONATE 2 % 1 PACK (2 CLOTHS) TOPICAL SCH (09:30)
[2017-07-30] MEDS ORDERED: NS 1000 ML IV SCH (09:30)
[2017-07-30] MEDS: SODIUM CHLOR 0.9% 1000 ML 1,000 ML IV SCH ×2 (09:30→17:30)
[2017-07-30] MEDS ORDERED: ceFAZolin 2 GM PREMIX 50 ML IV SCH (09:30)
[2017-07-30] MEDS ORDERED: ASPIRIN 325 MG TAB PO PRN (09:30)
[2017-07-30] MEDS ORDERED: diphenhydrAMINE HCL 50 MG/ML VIAL IV PUSH ONE (09:30)
[2017-07-30] MEDS ORDERED: POVIDONE IODINE 5% (ANTISEPSIS KIT) EACH NARE PRN (09:30)
[2017-07-30] MEDS ORDERED: SODIUM CHLORID 0.9% 500 ML IV PRN (11:00)
[2017-07-30] MEDS ORDERED: LACTATED RINGER'S 1000 ML IV PRN (11:00)
[2017-07-30] MEDS ORDERED: METOPROLOL TARTRATE 25 MG TAB PO PRN (11:00)
[2017-07-30] MEDS ORDERED: HEPARIN SODIUM - SQ 10,000 UNITS/ML VIAL ONE (11:23)
[2017-07-30] MEDS ORDERED: PROTAMINE SULFATE 50 MG/5 ML VIAL ONE (11:23)
[2017-07-30] MEDS ORDERED: PROPOFOL 200 MG/20 ML AMP ONE (11:59)
[2017-07-30] MEDS ORDERED: LIDOCAINE HCL 1% PF 5 ML SYRINGE OTHER ONE (12:00)
[2017-07-30] MEDS ORDERED: GLYCOPYRROLATE 1 MG/5 ML SYRINGE IV PUSH ONE (12:00)
[2017-07-30] MEDS ORDERED: NORMOSOL R INJ 1,000 ML IV ONE (12:00)
[2017-07-30] MEDS ORDERED: PROPOFOL 200 MG/20 ML AMP IV ONE ×2 (12:00)
[2017-07-30] MEDS ORDERED: LACTATED RINGER'S 1000 ML INJ 1,000 ML IV ONE (12:00)
[2017-07-30] MEDS ORDERED: PHENYLEPH/NS 1000 MCG/10 ML SYR IV ONE (12:00)
[2017-07-30] MEDS ORDERED: ePHEDrine/NS 25 MG/5 ML SYRINGE IV ONE (12:00)
[2017-07-30] MEDS ORDERED: MISC INFORMATION OTHER SCH (13:00)
[2017-07-30] MEDS ORDERED: MIDAZOLAM HCL 2 MG/2 ML VIAL ONE (13:24)
--- NOTE | 2017-07-30 13:24 | PD.OP ---
cc: Lola Condon MD; Pepe Aguirre MD Operative Report Date of Surgery: Jul 30, 2017 Preoperative Diagnosis: (1) Diastolic CHF (2) Aortic valve stenosis, severe Postoperative Diagnosis: same Procedure: Transcatheter aortic valve replacement with a 26 Evolut tissue valve Postdilation balloon aortic valvuloplasty with a 21 True Balloon Percutaneous bilateral femoral artery access with Perclose closure on the right Left femoral venous access Temporary TV pacemaker placement R internal jugular vein Aortography Fluoroscopy Anesthesia: Dr. Lindsey Surgeon: Lola Condon Co-surgeon - Dr. Aguirre Sock Mender(s): none Operation and Findings: The risks, benefits, complications, treatment options, and expected outcomes were discussed with the patient. The possibilities of reaction to medication, pulmonary aspiration, perforation of viscus, bleeding, recurrent infection, the need for additional procedures, failure to diagnose a condition, and creating a complication requiring transfusion or operation were discussed with the patient. The patient concurred with the proposed plan, giving informed consent. The site of surgery properly noted/marked. The patient was taken to the hybrid operating room, identified as Lili Vazquez and the procedure verified as Transcatheter Aortic Valve Replacement. A Time Out was held and the above information confirmed. Standard monitoring lines and Willis catheter were placed. Moderate sedation was induced. The patient was prepped and draped in a sterile fashion. Initially, left femoral arterial and venous access was acquired using a Seldinger percutaneous technique. The details of this procedure were dictated under separate note by cardiology. Once a pigtail was positioned in the aortic annulus and a temporary transvenous pacemaker wire was placed in the right ventricular apex and tested, the right femoral artery was accessed using a needle followed by a guidewire under fluoroscopic guidance. Arch aortography was performed to define the implant view. The patient was heparinized and Perclose devices placed for later closure. Serial dilators were used to dilate the right femoral artery to 16 Serbian caliber. The valve and delivery device was then inserted. A 26 Evolut R tissue transcatheter aortic valve was then positioned in the annulus and deployed with the patient being paced at 120 beats per minute. Following deployment, the valve apparatus was withdrawn and TTE was performed to assess the valve. There were no significant PVL, but the valve did not appear to be fully deployed against the left cusp which was heavily calcified. The valve delivery device was exchanged for a 16F Cook sheath. A balloon aortic valvuloplasty was then performed using a 21 x 6 True balloon with the patient being paced at 180 beats per minute.The valve had no significant perivalvular leaks and now appeared to be fully expanded. The 16F sheath was withdrawn under direct vision and removed. Perclose sutures were secured and Protamine administered. The left femoral vessels were closed with Mynx devices Sterile dressings were placed. At the end of the operation, all sponge, instruments, and needle counts were correct. The patient was transferred to the CVICU in stable condition. Findings: Heavily calcified [place] trileaflet AV. Implants: 26 Evolut R tissue valve Complications: none Disposition: to CVICU in stable condition Lola Condon MD Jul 30, 2017 13:24
[2017-07-30] MEDS ORDERED: ACETAMINOPHEN 325 MG TAB PO PRN (13:30)
[2017-07-30] MEDS ORDERED: ONDANSETRON HCL 4 MG/2 ML VIAL IV PUSH PRN (13:30)
[2017-07-30] MEDS ORDERED: GLUCAGON 1 MG/ML VIAL OTHER PRN (13:30)
[2017-07-30] MEDS ORDERED: ATROPINE SULFATE 1 MG/ML VIAL IV PUSH PRN (13:30)
[2017-07-30] MEDS ORDERED: DEXTROSE 50% IN WATER 50 ML VIAL(D50) IV PUSH PRN (13:30)
[2017-07-30] MEDS ORDERED: BENZOCAINE-MENTHOL (SUGAR FREE) 15 MG-3.6 MG LOZENGE BUCCAL PRN (13:30)
--- NOTE | 2017-07-30 13:30 | MH ---
cc: PEPE FULLER DATE OF ADMISSION: 07/30/2017 HISTORY OF PRESENT ILLNESS This is a 76-year-old female. She has a history of known hypertension, hyperlipidemia, hypothyroidism in addition to severe aortic valve stenosis. She has a prior history of breast cancer status post radiation and chemotherapy and mastectomy. She was evaluated for consideration of aortic valve replacement. She underwent consultation with both Dr. Condon and Dr. Rodríguez for consideration of surgical aortic valve replacement and felt to be considerably high risk. She was then referred for consideration of transcatheter aortic valve replacement. PAST MEDICAL HISTORY 1. Hypertension. 2. Hyperlipidemia. 3. Hypothyroidism. 4. Breast cancer. 5. History of coronary artery disease with recent percutaneous intervention with drug-eluting stent to the right coronary artery in addition to severe aortic stenosis. ALLERGIES SULFA. HYDROCODONE. SOCIAL HISTORY She denies any alcohol, tobacco or drug use. FAMILY HISTORY No family history of early heart disease or sudden cardiac . REVIEW OF SYSTEMS A 12-point review of systems was performed. Negative unless otherwise noted in the History of Present Illness. PHYSICAL EXAMINATION VITAL SIGNS: Temperature is 99, pulse is 90, blood pressure 120/56 mmHg. GENERAL: Alert and oriented x 3, in no acute distress. HEENT EXAM: Pupils reactive to light and accommodation. Extraocular movements are intact. NECK: No elevation in the jugular venous distention. No thyromegaly, no lymphadenopathy, no carotid bruits. LUNGS: Clear to auscultation bilaterally. CARDIOVASCULAR EXAM: Regular rate and rhythm, without murmurs, rubs, or gallops. ABDOMINAL EXAM: Non-tender, non-distended. Good bowel sounds. No hepatosplenomegaly. EXTREMITIES: No clubbing, cyanosis or edema. Good peripheral pulses. NEUROLOGIC: Cranial nerves intact. Motor and sensory grossly intact. LABS WBC 5.8, hemoglobin 9.9, platelet count 218. Sodium 141, potassium 4.9, BUN 53, creatinine 1.68 - This was back on July 24, 2017. PREPROCEDURAL TAVR EVALUATION The patient had a calculated STS score of 7.7%. The patient was [place] Heart Association Class III. BMI 46.4. Frailty Score: 2 out of 4 failing requirements for 5-minute walk test and albumin. Electrocardiogram Sinus rhythm with premature atrial complexes and narrow rhythm. Pulmonary function tests showed an FEV1 of 0.88; this is 46% of predicted and consistent with severe restrictive disease. Preprocedural echocardiogram showed jet velocity of 5.83 meter/second with a mean gradient of 67 mmHg. Calculated aortic valve area is 0.58 cm2. Ejection fraction is 55-60%. Mild to moderate aortic insufficiency with trace mitral and tricuspid regurgitation. Cardiac catheterization performed on 05/22/2017 showed 80% stenosis within the right coronary artery status post percutaneous intervention. CT of the chest analysis: Short annulus diameter 17.7 mm. Long annulus diameter 26.3 mm. The perimeter measured at 70.8 mm with a sinus of Valsalva diameter of 28.2 mm, sinotubular junction diameter 24.3 mm. Left coronary height was 13.8 mm, right coronary height 14.4 mm. Iliac system showed adequate minimal luminal diameters bilaterally. ASSESSMENT A 76-year-old female with known history of coronary artery disease with recent percutaneous intervention to the right coronary artery with symptomatic, severe aortic stenosis and [place] Heart Association Class III with chronic diastolic congestive heart failure. PLAN Due to her elevated surgical risks, the patient is referred for consideration of transcatheter aortic valve replacement. The risks, benefits and alternatives were discussed with the patient and the patient understood and consented to the procedure. A 26-mm Evolut Pro Medtronic valve will be deployed with a right common femoral approach. Pepe Fuller MD SM/SSB /12:54 PM /1:01 PM
--- NOTE | 2017-07-30 13:43 | PD.CAR.PN ---
CVT Progress Note Subjective/Hospital Course: 76-year-old female patient recently presented to the emergency room 05/22/17 with shortness of breath which she has been having off and on for the prior one month with exertion. Recently developed cough, had some chills. No prior history of COPD or congestive heart failure. She also had some lower extremity edema. She underwent complete workup. Her nasal washing was positive for influenza A. Troponin was elevated at 0.29. EKG showed sinus rhythm with a rare PVC otherwise unremarkable. She has been treated with Tamiflu. She denied having any chest pain, palpitations or syncope. Cardiology was consulted for the heart failure evaluation. She underwent echocardiogram, which showed an ejection fraction of 55% to 60%; however, she had mild to moderate aortic valve insufficiency with severe aortic valve stenosis of the aortic valve area 0.58. The aortic valve gradient of 67. Some trace tricuspid regurgitation. We were consulted after she underwent cardiac catheterization where she had successful percutaneous coronary intervention with drug-eluting stent to the right coronary artery. We were consulted for severe aortic stenosis and pt was evaluated for possible TAVR PAST MEDICAL HISTORY: Hypertension, Hyperlipidemia, Hypothyroidism, Left sided breast cancer in 2014 followed by mastectomy, radiation and chemotherapy. Her last dose of radiation and chemotherapy was in 2016. Her oncologist is Dr. Delong, Coronary artery disease, Aortic stenosis. 07/30 elective admission for TAVR Transcatheter aortic valve replacement with a 26 Evolut tissue valve Postdilation balloon aortic valvuloplasty with a 21 True Balloon Percutaneous bilateral femoral artery access with Perclose closure on the right Left femoral venous access Temporary TV pacemaker placement R internal jugular vein Objective: Vital Signs Date Time Temp Pulse Resp B/P (MAP) Pulse Ox O2 Delivery O2 Flow Rate FiO2 07/30/17 09:32 98.4 73 18 167/89 (401) 100 Araceli Montes Jul 30, 2017 13:43
--- NOTE | 2017-07-30 13:54 | MA ---
cc: PEPE FULLER DATE 07/30/[address] Pepe Fuller[address] PRIMARY CARDIOTHORACIC SURGEON Dr. Lola Condon. PROCEDURE PERFORMED 1. Fluoroscopy with interpretation. 2. Ascending aortography. 3. Transcatheter aortic valve replacement. 4. Aortic valvuloplasty. METHOD The risks, benefits and alternatives were discussed with the patient. The patient understood and consented to the procedure. The patient was brought into the catheterization lab and placed on the catheterization table. Bilateral groins were prepped and draped in a sterile fashion. The left groin was anesthetized with 2% lidocaine. The left common femoral artery was cannulated. Under fluoroscopic guidance a 5 Cuban, 11 cm sheath was placed without difficulty. The left femoral vein was accessed and a 5 Cuban, 11 cm sheath was placed without difficulty. The right common femoral artery was then accessed under fluoroscopic and angiographic guidance. A micropuncture sheath was placed. Digital subtraction angiography confirmed appropriate placement just above the level of the bifurcation but below the inferior epigastric vessel. Perclose was performed with two Perclose devices. An 8 Cuban sheath was then advanced into the right common femoral artery. ASCENDING AORTOGRAPHY A 5 Cuban angled pigtail catheter was then advanced to the ascending aorta and the noncoronary cusp. Ascending aortography was performed in a TANZANIAN 10, caudal 0 configuration with good visualization of all three leaflets and looked coaxial. TRANSCATHETER AORTIC VALVE REPLACEMENT A J-wire was advanced to the ascending aorta. A 6 Cuban, AL1 catheter was advanced to the ascending aorta. An Amplatz straight-tip super stiff wire was then navigated across the aortic valve with some difficulty. The AL1 catheter advanced into the left ventricle. The J-wire was then advanced through the catheter into the apex to the left ventricle and the AL1 catheter removed. A 6 Cuban angled pigtail catheter was then advanced into the apex and left ventricle and the J-wire removed. A Medtronic wire was then advanced out into the apex of the left ventricle and removed. A 26 EvolutR Medtronic percutaneous aortic valve was then prepped. The 8 Cuban sheath was removed. The sheathless device was then advanced under fluoroscopic guidance to the level of the thoracic aorta. We then carefully advanced the device up-and-over the arch and across the aortic valve. Under fluoroscopic and angiographic guidance the Evolut device was then carefully deployed with transcutaneous pacing at 120 beats per minute. The device was then successfully deployed and released with good opposition and appropriate placement. Although there was no significant paravalvular leak noted by transthoracic echocardiography, it did appear that there was some constraints at the level of the annulus, probably due to suboptimal expansion. We decided at that point to do a post dilatation with a 21 mm aortic valvuloplasty balloon. The balloon was advanced over the arch across the valve. The valvuloplasty was performed with good apposition and expansion of the device. A repeat transthoracic echocardiogram revealed no paravalvular leak with no significant residual aortic stenosis and no pericardial effusion. Post-transthoracic findings showed an aortic valve area by VTI of 1.82 cm/squared with a mean gradient of 5 mmHg, velocity of 170 cm/second, and no significant aortic regurgitation. The left venous and arterial sheaths were removed with hemostatic device placement of a Mynx with good hemostasis. Two Perclose devices were then used to close the right groin. Heparin was administered throughout the entire procedure to maintain appropriate anticoagulation. CONCLUSIONS 1. Severe aortic valve stenosis. 2. Successful transcatheter aortic valve replacement with a 26 mm Evolut R Medtronic prosthetic aortic valve device. PLAN The patient will be monitored closely for any post-procedural complications. The procedure was done under moderate sedation and not general anesthesia. The patient seemed to tolerate the procedure fairly well. Will monitor for any rhythm changes or bleeding complications. MD YOJANA Cramer/JOHNNY /1:01 PM /1:32 PM SPENSER
--- NOTE | 2017-07-30 14:14 | PD.CONS ---
HPI Service Critical Care Medicine Consult Requested By Dr. Aguirre Reason for Consult perioperative management of medical comorbidities Primary Care Physician No Primary Care Physician History of Present Illness This is a 76yF with history of symptomatic aortic stenosis, HDL, HTN, prior breast cancer s/p mastectomy and XRT/chemoTx who presents for elective TAVR. Procedure was uncomplicated via MAC sedation. she arrives to the CVICU in stable condition. She is arousing from anesthesia, so complete history is difficult. does endorse mild neck pain at the site of the central line, but denies chest pain, SOB, headache, nausea. Review of Systems ROS Limitations: Clinical Condition, Altered Mental Status Respiratory: DENIES: Shortness of breath Cardiovascular: DENIES: Chest pain Neurologic: DENIES: Headache ROS arousing from sedation Past Family Social History Allergies: Coded Allergies: Sulfa (Sulfonamide Antibiotics) (Verified Allergy, Severe, SWELLING, ITCHING, 07/30/17) iodine (Verified Allergy, Severe, Edema, 07/30/17) hydrocodone (Verified Adverse Reaction, Severe, Nausea/Vomiting, 07/30/17) Past Medical History HTN HLD Hypothyroidism left-sided breast cancer, 2014, s/p mastectomy, XRT, Chemotherapy. last dose of CTx 2015. CAD Aortic Stenosis Past Surgical History Left mastectomy, 2016 bilateral total knee arthroplasty left heel spur bilateral tubal ligation LHC with PAULY to RCA 05/23/2017 Reported Medications Plavix (Clopidogrel Bisulfate) 75 Mg Tab 75 Mg PO DAILY Tgt Aspirin (Aspirin) 81 Mg Chw 81 Mg PO DAILY Ferosul (Ferrous Sulfate) 325 Mg (65 Mg Iron) Tablet 325 Mg PO BID@12,17 Furosemide 40 Mg Tab 40 Mg PO DAILY Atorvastatin (Atorvastatin Calcium) 80 Mg Tab 80 Mg PO HS Prednisone 50 Mg Tab 50 Mg PO DAILY Potassium Chloride ER (Potassium Chloride) 10 Meq Cap 10 Meq PO BID Levothyroxine (Levothyroxine Sodium) 25 Mcg Tab 25 Mcg PO DAILY Allopurinol 100 Mg Tab 200 Mg PO DAILY Donepezil 5 Mg Tab 5 Mg PO HS Lisinopril 40 Mg Tab 40 Mg PO DAILY Metoprolol Tartrate 100 Mg Tab 100 Mg PO DAILY Omeprazole 20 Mg Tab 20 Mg PO DAILY Vitamin D3 (Cholecalciferol) 5,000 Unit Cap 5,000 Units PO DAILY Active Ordered Medications See MAR Family History mother and father from CHF Social History 25-30 pack-year history of smoking, quit in 1979. rare etoh. denies other drugs. Physical Exam Vital Signs Vital Signs Date Time Temp Pulse Resp B/P (MAP) Pulse Ox O2 Delivery O2 Flow Rate FiO2 07/30/17 09:32 98.4 73 18 167/89 (115) 100 Physical Exam GENERAL: Elderly female, lying in bed, arousing from sedation HEENT: Normocephalic. Atraumatic. Pupils equal, round, reactive, conjugate. Mucous membranes are moist NECK: Trachea is midline. There is no JVD. Right IJ introducer sheath with transvenous pacer in place, site clean dry and intact CHEST: Equal chest rise. Nasal cannula oxygen. Unlabored. CARDIOVASCULAR: Bradycardic rate, normal rhythm. Appears to be sinus with an occasional junctional beat. Patient has a pacer in place which is VVI backup rate at 50. Patient has approximately 1-2 paced beats per minute. ABDOMEN: Soft, nontender, nondistended. No guarding. MUSCULOSKELETAL: Pulses 2+. No peripheral edema. Bilateral groin sites covered with clean dressings, no evidence of hematoma. Lower extremity pulses palpable. NEUROLOGICAL: RASS -1. Arousing from sedation. Follows commands in all 4 extremities. Assessment and Plan Assessment and Plan Assessment: 68-year-old female postop day 0 status post transcatheter aortic valve replacement through common iliac access. Doing well. will watch closely in ICU setting. keep pacer tonight as she has some paced beats. if patient goes into 3rd degree heart block at any point, will consult EP, but this may be transient sinus bradycardia secondary to sedation, as she is not hemodynamically unstable. s/p TAVR 07/30 with iliac access - anticoagulation per Dr. Aguirre (already on Plavix for PAULY in 05/2017) - frequent neurovascular checks - mivf - uop monitoring. CAD - restart ASA HLD - restart statin prior tobacco use - aggressive pulmonary toilet - wean o2 for goal spo2 > 90% - prn nebs Hypothyroidism - restart home synthroid. Dispo: admit to ICU for close monitoring. Critical Care Medicine will continue to follow patient as long as she remains in the CVICU. Discussed Condition With Dr. Condon, Eren Morgan MD Jul 30, 2017 14:14
[2017-07-30] MEDS ORDERED: hydrALAZINE HCL 20 MG/ML VIAL IV PRN (20:30)
[2017-07-30] MEDS ORDERED: ceFAZolin 2 GM PREMIX 50 ML IV ONE (22:00)
[2017-07-31] VITALS (7 sets, daily range): BP systolic 109–166; BP diastolic 43–70; PULSE 50–70; RESP 12–22; TEMP 97.6–97.8; O2SAT 95–98
[2017-07-31] MEDS: SODIUM CHLOR 0.9% 1000 ML 1,000 ML IV SCH (01:30)
[2017-07-31] MEDS ORDERED: LEVOTHYROXINE SODIUM 25 MCG TAB PO SCH ×2 (06:00→07:19)
[2017-07-31 06:23] LABS: HEMATOCRIT 27.7 % (35.0-46.0); HEMOGLOBIN 9.3 GM/DL (11.6-15.3); MEAN CELL VOLUME 89.5 FL (80.0-100.0); MEAN CORPUSCULAR HEMOGLOBIN 30.2 PG (27.0-34.0); MEAN CORPUSCULAR HGB CONC 33.7 % (32.0-36.0); MEAN PLATELET VOLUME 7.4 FL (7.0-11.0); PLATELET COUNT 191 TH/MM3 (150-450); RED CELL DISTRIBUTION WIDTH 14.9 % (11.6-17.2); WHITE BLOOD COUNT 9.2 TH/MM3 (4.0-11.0)
[2017-07-31 06:52] LABS: BICARBONATE 24.2 MEQ/L (21.0-32.0); CALCIUM 8.8 MG/DL (8.5-10.1); CREATININE 1.52 MG/DL (0.50-1.00)
--- NOTE | 2017-07-31 07:28 | PD.CARD.PN ---
Subjective Subjective Remarks doing well this am no complaints up to chair yesterday Objective Medications Current Medications Medications (Trade) Dose Ordered Sig/Elana Route Start Time Stop Time Status Last Admin Vancomycin HCl 1000 mg/Sodium Chloride 250 ml @ 250 mls/hr HAUL CANE BRAKEMAN IV 07/30/17 09:30 08/02/17 09:29 (Bactroban Nasal 2% Oint) 1 applic HAUL CANE BRAKEMAN NASAL 07/30/17 09:30 08/02/17 09:29 07/30/17 09:45 (Aspirin) 325 mg UNSCH X1 PRN PO 07/30/17 09:30 07/31/17 09:29 Cefazolin Sodium/ Dextrose 50 ml @ 100 mls/hr HAUL CANE BRAKEMAN PRN IV 07/30/17 09:30 08/02/17 09:29 07/30/17 11:11 (Betadine 5% Antisepsis Kit) 1 applic HAUL CANE BRAKEMAN PRN EACH NARE 07/30/17 09:30 08/02/17 09:29 (Bactroban Nasal 2% Oint) 1 applic HAUL CANE BRAKEMAN PRN EACH NARE 07/30/17 09:30 08/02/17 09:29 (Chlorhexidine 2% Cloth) 3 pack HAUL CANE BRAKEMAN PRN TOPICAL 07/30/17 09:30 08/02/17 09:29 07/30/17 09:45 Lactated Ringer's 1,000 ml @ 30 mls/hr Q24H PRN IV 07/30/17 11:00 08/02/17 10:59 Sodium Chloride 500 ml @ 30 mls/hr [id number] PRN IV 07/30/17 11:00 08/02/17 10:59 (Lopressor) 25 mg HAUL CANE BRAKEMAN PRN PO 07/30/17 11:00 08/02/17 10:59 (Tylenol) 650 mg Q4H PRN PO 07/30/17 13:30 07/31/17 13:29 07/30/17 21:55 (Cepacol Extra Rubin (Sugar Free)) 1 lozenge Q3H PRN BUCCAL 07/30/17 13:30 07/31/17 13:29 (Atropine Inj) 0.5 mg UNSCH PRN IV PUSH 07/30/17 13:30 07/31/17 13:29 Miscellaneous Information 1 UNSCH OTHER 07/30/17 13:00 08/01/17 12:59 (Aspirin Chew) 81 mg DAILY PO 07/31/17 09:00 (Plavix) 75 mg DAILY PO 07/31/17 09:00 (D50w (Vial) Inj) 50 ml UNSCH PRN IV PUSH 07/30/17 13:30 (Glucagon Inj) 1 mg UNSCH PRN OTHER 07/30/17 13:30 (Apresoline Inj) 20 mg Q2H PRN IV 07/30/17 20:30 (Synthroid) 25 mcg DAILY@0600 PO 07/31/17 06:00 07/31/17 06:03 (Zyloprim) 200 mg DAILY PO 07/31/17 09:00 (Lipitor) 80 mg HS PO 07/31/17 21:00 (Vitamin D3) 5,000 units DAILY PO 07/31/17 09:00 (Aricept) 5 mg HS PO 07/31/17 21:00 (Ferrous Sulfate) 325 mg BID@12,17 PO 07/31/17 12:00 (KCl) 10 meq BID PO 07/31/17 09:00 (Prinivil) 40 mg DAILY PO 07/31/17 09:00 (Protonix) 20 mg DAILY PO 07/31/17 09:00 Vital Signs / I&O Vital Signs Date Time Temp Pulse Resp B/P (MAP) Pulse Ox O2 Delivery O2 Flow Rate FiO2 07/31/17 04:00 97.8 50 22 132/59 (83) 97 109/50 (69) 07/31/17 04:00 50 07/31/17 04:00 50 07/31/17 00:00 51 07/31/17 00:00 97.7 51 20 157/70 (99) 98 152/61 (91) 07/30/17 23:00 56 07/30/17 20:47 98 Nasal Cannula 2.00 07/30/17 20:00 97.6 60 20 151/60 (90) 97 132/51 (78) 07/30/17 20:00 60 07/30/17 19:30 50 07/30/17 15:00 97.5 49 18 167/50 (89) 97 178/53 (94) 07/30/17 15:00 49 07/30/17 15:00 49 07/30/17 13:05 72 07/30/17 13:05 97.6 72 16 152/56 (88) 98 135/46 (75) 07/30/17 13:05 72 07/30/17 09:32 98.4 73 18 167/89 (115) 100 I/O 07/30/17 07/30/17 07/30/17 07/31/17 07/31/17 07/31/17 07:00 15:00 23:00 07:00 15:00 23:00 Intake Total 0 ml 460 ml Output Total 925 ml 500 ml Balance -925 ml -40 ml Intake Oral 0 ml 360 ml IV Total 0 ml 100 ml Output Urine Total 925 ml 500 ml # Bowel Movements 0 Physical Exam HEAD: Normocephalic. EYES: No scleral icterus. No injection or drainage. NECK: Supple, trachea midline. No JVD or lymphadenopathy. CARDIOVASCULAR: Regular rate and rhythm bradycardiac. 1/6 SM RESPIRATORY: Breath sounds equal bilaterally. No accessory muscle use. GASTROINTESTINAL: Abdomen soft, non-tender, nondistended. MUSCULOSKELETAL: No cyanosis, or edema. Groin c/d/i Laboratory Laboratory Tests Test 07/31/17 06:00 White Blood Count 9.2 TH/MM3 Red Blood Count 3.10 MIL/MM3 Hemoglobin 9.3 GM/DL Hematocrit 27.7 % Mean Corpuscular Volume 89.5 FL Mean Corpuscular Hemoglobin 30.2 PG Mean Corpuscular Hemoglobin Concent 33.7 % Red Cell Distribution Width 14.9 % Platelet Count 191 TH/MM3 Mean Platelet Volume 7.4 FL Blood Urea Nitrogen 47 MG/DL Creatinine 1.52 MG/DL Random Glucose 102 MG/DL Calcium Level 8.8 MG/DL Sodium Level 142 MEQ/L Potassium Level 4.3 MEQ/L Chloride Level 110 MEQ/L Carbon Dioxide Level 24.2 MEQ/L Anion Gap 8 MEQ/L Estimat Glomerular Filtration Rate 40 ML/MIN Assessment and Plan Assessment and Plan Severe - status post TAVR yesterday with Medtronic 26 mm EvolutR bioprosthetic valve no jose martin- or post-procedural complications HTN - restart ACEi. No BB due to bradycardia CRI - Cr stable. diastolic CHF - well compensated. hold lasix. ambulate transfer to telemetry temp pacer - removed remove a-line and R IJ introducer asa plavix Probable DC later today if does well no arrhythmias. no bleeding. no CP or SOB FU limited 2d echo today Minor,Pepe Lieberman MD Jul 31, 2017 07:28
[2017-07-31] MEDS ORDERED: POTASSIUM CHLORIDE 10 MEQ CAP PO SCH (09:00)
[2017-07-31] MEDS ORDERED: PANTOPRAZOLE SOD 20 MG DELAYED RELEASE TAB PO SCH (09:00)
[2017-07-31] MEDS ORDERED: LISINOPRIL 5 MG TAB PO SCH (09:00)
[2017-07-31] MEDS ORDERED: CLOPIDOGREL 75 MG TAB PO SCH ×2 (09:00)
[2017-07-31] MEDS ORDERED: CHOLECALCIFEROL (VIT D3) 5000 UNIT CAP PO SCH (09:00)
[2017-07-31] MEDS ORDERED: ALLOPURINOL 100 MG TAB PO SCH (09:00)
[2017-07-31] MEDS ORDERED: LISINOPRIL 20 MG TAB PO SCH (09:00)
[2017-07-31] MEDS ORDERED: ASPIRIN 81 MG CHEW TAB PO SCH ×2 (09:00)
[2017-07-31] MEDS: FERROUS SULFATE 325 MG (65 MG ELEMENTAL IRON) TAB PO SCH ×2 (11:40→17:00)
--- NOTE | 2017-07-31 14:20 | PD.CAR.PN ---
CVT Progress Note Subjective/Hospital Course: 76-year-old female patient recently presented to the emergency room 05/22/17 with shortness of breath which she has been having off and on for the prior one month with exertion. Recently developed cough, had some chills. No prior history of COPD or congestive heart failure. She also had some lower extremity edema. She underwent complete workup. Her nasal washing was positive for influenza A. Troponin was elevated at 0.29. EKG showed sinus rhythm with a rare PVC otherwise unremarkable. She has been treated with Tamiflu. She denied having any chest pain, palpitations or syncope. Cardiology was consulted for the heart failure evaluation. She underwent echocardiogram, which showed an ejection fraction of 55% to 60%; however, she had mild to moderate aortic valve insufficiency with severe aortic valve stenosis of the aortic valve area 0.58. The aortic valve gradient of 67. Some trace tricuspid regurgitation. We were consulted after she underwent cardiac catheterization where she had successful percutaneous coronary intervention with drug-eluting stent to the right coronary artery. We were consulted for severe aortic stenosis and pt was evaluated for possible TAVR PAST MEDICAL HISTORY: Hypertension, Hyperlipidemia, Hypothyroidism, Left sided breast cancer in 2014 followed by mastectomy, radiation and chemotherapy. Her last dose of radiation and chemotherapy was in 2016. Her oncologist is Dr. Delong, Coronary artery disease, Aortic stenosis. 07/30 elective admission for TAVR Transcatheter aortic valve replacement with a 26 Evolut tissue valve Postdilation balloon aortic valvuloplasty with a 21 True Balloon Percutaneous bilateral femoral artery access with Perclose closure on the right Left femoral venous access Temporary TV pacemaker placement R internal jugular vein 07/31 doing well on room air , temporary pacer removed no jose martin- or post-procedural complications restart ACEi. No BB due to bradycardia CRI - Cr stable. diastolic CHF - well compensated. hold lasix. ambulate transfer to telemetry asa plavix Probable DC later today when ok with Dr Doran Objective: GENERAL: A&O x 3 SKIN: Warm and dry. dressing ti right neck area and both groins HEAD: Normocephalic. EYES: No scleral icterus. No injection or drainage. NECK: Supple, trachea midline. No JVD or lymphadenopathy. CARDIOVASCULAR: Regular rate and rhythm 1/6 sm no gallops, or rubs. RESPIRATORY: Breath sounds equal bilaterally. No accessory muscle use. GASTROINTESTINAL: Abdomen soft, non-tender, nondistended. MUSCULOSKELETAL: No cyanosis, or edema. BACK: Nontender without obvious deformity. No CVA tenderness. Vital Signs Date Time Temp Pulse Resp B/P (MAP) Pulse Ox O2 Delivery O2 Flow Rate FiO2 07/31/17 11:00 65 07/31/17 11:00 97.6 66 16 126/43 (70) 96 Arterial Line 07/31/17 08:00 96 07/31/17 07:00 97.7 62 12 161/56 (91) 95 166/51 (89) 07/31/17 07:00 62 07/31/17 07:00 59 07/31/17 04:00 97.8 50 22 132/59 (83) 97 109/50 (69) 07/31/17 04:00 50 07/31/17 04:00 50 07/31/17 00:00 51 07/31/17 00:00 97.7 51 20 157/70 (99) 98 152/61 (91) 07/30/17 23:00 56 07/30/17 20:47 98 Nasal Cannula 2.00 07/30/17 20:00 97.6 60 20 151/60 (90) 97 132/51 (78) 07/30/17 20:00 60 07/30/17 19:30 50 07/30/17 15:00 97.5 49 18 167/50 (89) 97 178/53 (94) 07/30/17 15:00 49 07/30/17 15:00 49 Labs: Laboratory Tests Test 07/31/17 06:00 White Blood Count 9.2 TH/MM3 (4.0-11.0) Red Blood Count 3.10 MIL/MM3 (4.00-5.30) Hemoglobin 9.3 GM/DL (11.6-15.3) Hematocrit 27.7 % (35.0-46.0) Mean Corpuscular Volume 89.5 FL (80.0-100.0) Mean Corpuscular Hemoglobin 30.2 PG (27.0-34.0) Mean Corpuscular Hemoglobin Concent 33.7 % (32.0-36.0) Red Cell Distribution Width 14.9 % (11.6-17.2) Platelet Count 191 TH/MM3 (150-450) Mean Platelet Volume 7.4 FL (7.0-11.0) Blood Urea Nitrogen 47 MG/DL (7-18) Creatinine 1.52 MG/DL (0.50-1.00) Random Glucose 102 MG/DL (74-106) Calcium Level 8.8 MG/DL (8.5-10.1) Sodium Level 142 MEQ/L (136-145) Potassium Level 4.3 MEQ/L (3.5-5.1) Chloride Level 110 MEQ/L (98-107) Carbon Dioxide Level 24.2 MEQ/L (21.0-32.0) Anion Gap 8 MEQ/L (5-15) Estimat Glomerular Filtration Rate 40 ML/MIN (>89) Result Diagram: 07/31/17 0600 07/31/17 0600 Cardiovascular: NSR (1) Aortic valve stenosis, severe (2) Diastolic CHF (3) Status post transcatheter aortic valve replacement Plan: on ASA plvix, home meds resumed rhythm stable for possible dc home today per Dr Aguirre no new orders per [facility] Araceli Montes Jul 31, 2017 14:20
--- NOTE | 2017-07-31 15:24 | EKG ---
Date Performed: 07/31/2017 Time Performed: 07:37:44 PTAGE: 76 years EKG: Sinus bradycardia Short HI interval Borderline ECG PREVIOUS TRACING : 07/24/2017 11.21 DOCTOR: Pepe Aguirre Interpretating Date/Time 07/31/2017 15:22:48
[2017-07-31] MEDS ORDERED: FURO1TAB62 PO (15:50)
--- NOTE | 2017-07-31 15:57 | HHI.DS ---
Discharge Summary Admission Date Jul 30, 2017 at 09:02 Discharge Date: Jul 31, 2017 Admitting Diagnosis aortic stenosis Procedures Transcatheter aortic valvular replacement CBC/BMP: 07/31/17 0600 07/31/17 0600 Significant Findings Laboratory Tests Test 07/31/17 06:00 Red Blood Count 3.10 MIL/MM3 (4.00-5.30) Hemoglobin 9.3 GM/DL (11.6-15.3) Hematocrit 27.7 % (35.0-46.0) Blood Urea Nitrogen 47 MG/DL (7-18) Creatinine 1.52 MG/DL (0.50-1.00) Chloride Level 110 MEQ/L (98-107) Estimat Glomerular Filtration Rate 40 ML/MIN (>89) PE at Discharge GENERAL: SKIN: Warm and dry. HEAD: Normocephalic. EYES: No scleral icterus. No injection or drainage. NECK: Supple, trachea midline. No JVD or lymphadenopathy. CARDIOVASCULAR: Regular rate and rhythm without murmurs, gallops, or rubs. RESPIRATORY: Breath sounds equal bilaterally. No accessory muscle use. GASTROINTESTINAL: Abdomen soft, non-tender, nondistended. MUSCULOSKELETAL: No cyanosis, or edema. BACK: Nontender without obvious deformity. No CVA tenderness. Hospital Course Patient underwent successful placement with a Evolut R Medtr[employer] bioprosthetic percutaneous aortic valve. Postoperative course was unremarkable. Pt Condition on Discharge: Good Discharge Disposition: Discharge Home Discharge Instructions DIET: Follow Instructions for: Heart Healthy Diet Activities you can perform: Weight Bearing as Pepe Tovar MD Jul 31, 2017 15:56
--- NOTE | 2017-07-31 16:17 | ECHRPT ---
Indication: TAVR, R/O VEGETATIONS CONCLUSIONS Normal left ventricular size. Mild concentric left ventricular hypertrophy. Trace paravalvular aortic valve regurgitation. Status-post percutaneous aortic valve replacement. Normally functioning bioprosthesis. There is mild tricuspid valve regurgitation. The estimated pulmonary arterial pressure is 48.9 mmHg. BP: 159 / 55 HR: 53 Rhythm: Sinus MEASUREMENTS (Male / Female) Normal Values Technical Quality:Fair 2D ECHO LV Diastolic Diameter PLAX 5.2 cm 4.2 - 5.9 / 3.9 - 5.3 cm LV Systolic Diameter PLAX 3.9 cm IVS Diastolic Thickness 1.2 cm 0.6 - 1.0 / 0.6 - 0.9 cm LVPW Diastolic Thickness 1.2 cm 0.6 - 1.0 / 0.6 - 0.9 cm LV Relative Wall Thickness 0.5 RV Internal Dim ED PLAX 2.2 cm LVOT Diameter 1.9 cm Aortic Root Diameter 2.1 cm LA Systolic Diameter LX 3.8 cm 3.0 - 4.0 / 2.7 - 3.8 cm DOPPLER AV Peak Velocity 219.0 cm/s AV Peak Gradient 19.2 mmHg AV Mean Gradient 9.0 mmHg AV Velocity Time Integral 49.0 cm LVOT Peak Velocity 129.0 cm/s LVOT Peak Gradient 6.7 mmHg LVOT Velocity Time Integral 29.3 cm AV Area Cont Eq vti 1.7 cm AV Area Cont Eq pk 1.7 cm Mitral E Point Velocity 86.9 cm/s Mitral A Point Velocity 102.0 cm/s Mitral E to A Ratio 0.9 TR Peak Velocity 312.0 cm/s TR Peak Gradient 38.9 mmHg Right Atrial Pressure 10.0 mmHg Pulmonary Artery Systolic Pressu 48.9 mmHg Right Ventricular Systolic Press 48.9 mmHg PV Peak Velocity 95.5 cm/s PV Peak Gradient 3.6 mmHg FINDINGS LEFT VENTRICLE Normal left ventricular size. Mild concentric left ventricular hypertrophy. The left ventricular systolic function is normal with an estimated ejection fraction in the range of 60-65%. RIGHT VENTRICLE Normal right ventricular size and systolic function. LEFT ATRIUM The left atrial size is normal. RIGHT ATRIUM The right atrial size is normal. ATRIAL SEPTUM Normal atrial septal thickness without atrial level shunting by limited color doppler interrogation. AORTA The aortic root and proximal ascending aorta are normal in size on limited imaging. MITRAL VALVE Structurally normal mitral valve. No mitral valve stenosis or regurgitation. AORTIC VALVE Trace paravalvular aortic valve regurgitation. Status-post percutaneous aortic valve replacement. Normally functioning bioprosthesis. Aortic valve area is 1.7 cm. Aortic valve mean gradient is 9 mmHg. TRICUSPID VALVE There is mild tricuspid valve regurgitation. The estimated pulmonary arterial pressure is 48.9 mmHg. PULMONARY VALVE No pulmonary valve regurgitation or stenosis. VESSELS The inferior vena cava is normal in size. PERICARDIUM No pericardial effusion. Pepe Aguirre MD, FACC (Electronically Signed) Final Date:31 July 2017 16:16
--- NOTE | 2017-07-31 17:59 | MB ---
cc: BETH GHOTRA M.D. DATE OF CONSULTATION 07/31/2017 Electrophysiology consult REASON FOR CONSULTATION Evaluation post TAVR for conduction disease. HISTORY Mrs. Vazquez is a 76-year-old -[place] female with history of high blood pressure, hyperlipidemia, previous breast cancer, coronary artery disease, PTCA plus stent to RCA, aortic stenosis who was admitted for TAVR. Procedure was performed. It was successful. I was consulted for evaluation for possible conduction disease. The chart was reviewed. The patient was evaluated. ALLERGIES SULFA AND HYDROCODONE. SOCIAL HISTORY Negative for smoking and drinking. FAMILY HISTORY Noncontributory to her current medical condition. MEDICATIONS She is currently on: 1. Ancef. 2. Allopurinol. 3. Aspirin. 4. Lipitor 80 mg a day. 5. Plavix 75 mg a day. 6. Ferrous sulfate. 7. Lisinopril 40 mg a day. 8. Levoxyl 25 mcg a day. 9. Metoprolol. 10. Potassium. REVIEW OF SYSTEMS The patient refers no chest pain. No chest discomfort. Feeling better. No vomiting. No fever. PHYSICAL EXAMINATION GENERAL: Alert, fully oriented. VITAL SIGNS: Her blood pressure 120/58, pulse 62, respiratory 18. LUNGS: Ventilated. CARDIOVASCULAR: S1-S2. No gallop. No murmur. ABDOMEN: Soft. No mass. No bruit. EXTREMITIES: No edema. NECK: Right jugular area with her central access that just was removed. Electrocardiogram shows sinus rhythm, diffuse ST changes. There is no significant change compared to previous electrocardiogram. ASSESSMENT AND RECOMMENDATIONS Mrs. Vazquez is currently stable. There is no significant change at this point in the electrocardiogram. She is doing very well. No syncope. No pause. My recommendation continue with current management. The patient can be discharged home. I will see her on an a p.r.n. basis. MD SUSIE Mayorga/ARAMIS /4:18 PM /5:39 PM
[2017-07-31] MEDS ORDERED: ATORVASTATIN 80 MG TAB PO SCH (21:00)
[2017-07-31] MEDS ORDERED: DONEPEZIL HCL 5 MG TAB PO SCH (21:00)
== END 2017-07-31 18:34 | disposition home or self-care (01) | DRG 267 ==
LOC: HSDI 09:02 → EDSTATUS 10:00 → HDIC 10:18 → HCVI 13:15 → HCIS 07-31 12:55
PROVIDERS: ADMIT Internal Medicine; ATTEND Internal Medicine
PROC: B246ZZZ Ultrasonography of Right and Left Heart (ICD-10-PCS; 2017-07-30)
PROC: 02RF38Z Replacement of Aortic Valve with Zooplastic Tissue, Percutaneous Approach (ICD-10-PCS; principal; 2017-07-30 10:38)
PROC: 027F3ZZ Dilation of Aortic Valve, Percutaneous Approach (ICD-10-PCS; 2017-07-30 10:38)
PROC: B3101ZZ Fluoroscopy of Thoracic Aorta using Low Osmolar Contrast (ICD-10-PCS; 2017-07-30 10:38)
DX: I08.3 Combined rheumatic disorders of mitral, aortic and tricuspid valves (principal); I13.0 Hypertensive heart and chronic kidney disease with heart failure and stage 1 through stage 4 chronic kidney disease, or unspecified chronic kidney disease; I50.32 Chronic diastolic (congestive) heart failure; E78.5 Hyperlipidemia, unspecified; E03.9 Hypothyroidism, unspecified; Z92.21 Personal history of antineoplastic chemotherapy; Z92.3 Personal history of irradiation; Z85.3 Personal history of malignant neoplasm of breast; N18.9 Chronic kidney disease, unspecified; Z87.891 Personal history of nicotine dependence; Z96.653 Presence of artificial knee joint, bilateral; Z90.10 Acquired absence of unspecified breast and nipple; I25.10 Atherosclerotic heart disease of native coronary artery without angina pectoris; Z95.5 Presence of coronary angioplasty implant and graft; I49.3 Ventricular premature depolarization; Z00.6 Encounter for examination for normal comparison and control in clinical research program
CPT/HCPCS: 33210; 33361; 80048; 85002; 85027; 86850; 86900; 86901; 86920; 92986; 93005; 93308; 94150; C1760; C1769; C1893; G0269; J0690; J1200; J1644; J1720; J2250; J2370; J2720; J3010; J7120